=== PATIENT | female | born 1945 | race Caucasian/White ===

== ENCOUNTER → 2017-06-28 | Outpatient (CLI) | payer MEDICARE ==
[2017-06-28 15:39] LABS: Basophils # (A) 0.1 k/uL (0-0.2); Basophils % (A) 1 %; CH 28.6; CHCM 32.4; Eosinophils # (A) 0.5 k/uL (0-0.7); Eosinophils % (A) 8 %; HDW 2.41; HGB 13.8 gm/dL (11.4-16.0); Luc # (Auto) 0.09; Luc % (Auto) 2; Lymphocytes # (A) 2.2 k/uL (1.0-4.8); Lymphocytes % (A) 37 %; MCHC 31.4 g/dL (31.0-37.0); Mean Platelet Volume 7.3; Monocytes # (A) 0.3 k/uL (0-1.0); Monocytes % (A) 5 %; Neutrophils % (A) 49 %; RBC 4.94 m/uL (3.80-5.40); RDW 14.7 % (11.5-15.5); WBC 6.1 k/uL (3.8-10.6); WBC (Perox) 6.09
[2017-06-28 15:43] LABS: Total Bilirubin 0.5 mg/dL (0.2-1.3); Total Protein 6.4 g/dL (6.3-8.2)
[2017-07-01 14:39] LABS: Mis test requested (Blood) CLADOSPORIUM IGG
== END | disposition home or self-care (01) ==
LOC: LABWHC1 14:51
PROVIDERS: ATTEND Allergy & Immunology
DX: J45.901 Unspecified asthma with (acute) exacerbation (principal)
CPT/HCPCS: 36415; 80076; 82785; 85025; 86001

== ENCOUNTER → 2017-09-20 | Outpatient (CLI) | payer MEDICARE, OTHER ==
[2017-09-20 11:20] LABS: Basophils # (A) 0.1 k/uL (0-0.2); Basophils % (A) 1 %; CH 28.1; CHCM 32.2; Eosinophils # (A) 0.4 k/uL (0-0.7); Eosinophils % (A) 4 %; HCT 43.5 % (34.0-46.0); HDW 2.41; Luc # (Auto) 0.18; Luc % (Auto) 2; Lymphocytes # (A) 2.6 k/uL (1.0-4.8); Lymphocytes % (A) 31 %; MCH 28.1 pg (25.0-35.0); MCHC 32.1 g/dL (31.0-37.0); MCV 87.7 fL (80.0-100.0); Mean Platelet Volume 6.6; Monocytes # (A) 0.6 k/uL (0-1.0); Monocytes % (A) 7 %; Neutrophils # (A) 4.8 k/uL (1.3-7.7); Neutrophils % (A) 56 %; RBC 4.97 m/uL (3.80-5.40); RDW 13.8 % (11.5-15.5); WBC 8.6 k/uL (3.8-10.6)
[2017-09-20 18:02] LABS: Clam IgE <0.10 kU/L; Egg White IgE <0.10 kU/L; Peanut IgE <0.10 kU/L; Scallop IgE <0.10 kU/L; Soybean IgE <0.10 kU/L
[2017-09-20 18:14] LABS: Alternaria alternata IgE <0.10 kU/L; Aspergillus fumagatus IgE <0.10 kU/L; Cladosporian herbarum IgE <0.10 kU/L; Maple (Box Elder) IgE <0.10 kU/L; Ragweed,Common IgE <0.10 kU/L
[2017-09-20 18:16] LABS: Cat Epith & Dander IgE <0.10 kU/L; Dermato. farinae IgE <0.10 kU/L; Orchard Grs(Cocksfoot) IgE 2.14 kU/L
== END | disposition home or self-care (01) ==
LOC: LABWHC1 10:46
PROVIDERS: ATTEND Internal Medicine Critical Care Medicine
DX: J45.50 Severe persistent asthma, uncomplicated (principal)
CPT/HCPCS: 36415; 82785; 85008; 85025; 86003

== ENCOUNTER → 2017-09-24 | Outpatient (CLI) | payer MEDICARE, OTHER ==
[2017-09-24 11:31] LABS: Blood Urea Nitrogen 20 mg/dL (7-17); Non-African American GFR(MDRD) 56 (>60 ml/min/1.73 sqM)
--- NOTE | 2017-09-24 12:15 | CT ---
EXAMINATION TYPE: CT sinus w con DATE OF EXAM: 09/24/2017 COMPARISON: NONE HISTORY: Patient complains of persistent asthma. Patient denies sinus/facial complaints at time of s ervice. CT DLP: 635.1 mGycm Automated exposure control for dose reduction was used. CONTRAST: CT scan of the facial bones is performed with IV Contrast, patient injected with 80 mL of Visipaque 3 20. TECHNIQUE: CT scan of the sinuses is performed without contrast, axial images are obtained, coronal r eformatted images are also reviewed. FINDINGS: There is occlusion of the ostiomeatal complexes bilaterally with near circumferential mucos al thickening of the maxillary sinuses and ethmoid sinuses with moderate mucosal thickening in the fr ontal sinuses and mild mucosal thickening within the sphenoid sinuses. There is no evidence of parana shawanda sinus cortical erosion or expansion. High density is seen within the left maxillary sinus which m ay be indicative of hemorrhage or fungal disease. Lamina papyracea appear intact. Visualized portion of mastoid air cells show no abnormal opacification. The globes are intact bilaterally. Right lense s are surgically absent. There is leftward nasal septal deviation with a large middle nasal turbinate camila bullosa on the right. No Drea cells. Chronic mucoperiosteal thickening is also noted in the maxillary sinuses. IMPRESSION: Severe acute on chronic pansinusitis with bilateral ostiomeatal occlusion and a large rig ht middle nasal turbinate camila bullosa. High density seen within the left maxillary sinus which may indicate fungal disease and/or hemorrhage.
== END | disposition home or self-care (01) ==
LOC: RADCTMAIN 10:55
PROVIDERS: ATTEND Internal Medicine Critical Care Medicine
DX: J01.40 Acute pansinusitis, unspecified (principal); J34.89 Other specified disorders of nose and nasal sinuses
CPT/HCPCS: 82565; 84520; 36415; 70487; Q9967

== ENCOUNTER → 2018-06-14 | Outpatient (CLI) | payer MEDICARE, OTHER ==
--- NOTE | 2018-06-21 10:29 | MM ---
Reason for exam: screening (asymptomatic). Last mammogram was performed 1 year and 9 months ago. History: Patient is postmenopausal. Physical Findings: A clinical breast exam by your physician is recommended on an annual basis and results should be correlated with mammographic findings. MG 3D Screening Mammo W/Cad Bilateral CC and MLO view(s) were taken. Prior study comparison: September 02, 2016, mammogram, performed at [place]. July 20, 2006, bilateral screening mammogram w/CAD. The breast tissue is heterogeneously dense. This may lower the sensitivity of mammography. There is benign appearing round calcifications bilaterally. There is no discrete abnormality. ASSESSMENT: Benign, BI-RAD 2 RECOMMENDATION: Routine screening mammogram of both breasts in 1 year.
== END | disposition home or self-care (01) ==
LOC: RADMAMWWP 08:56
PROVIDERS: ATTEND Obstetrics & Gynecology
DX: Z12.31 Encounter for screening mammogram for malignant neoplasm of breast (principal)
CPT/HCPCS: 77063; 77067

== ENCOUNTER → 2018-09-30 | Outpatient (CLI) | payer MEDICARE, OTHER | END | disposition home or self-care (01) | LOC: LABWHC1 12:25 | PROVIDERS: ATTEND Nurse Practitioner Family | DX: R20.2 Paresthesia of skin (principal); M54.2 Cervicalgia; M50.11 Cervical disc disorder with radiculopathy, high cervical region; R26.89 Other abnormalities of gait and mobility | CPT/HCPCS: 36415; 82565; 84520 ==

== ENCOUNTER → 2022-01-01 | Outpatient (CLI) | payer MEDICARE, OTHER ==
[2022-01-01 15:04] LABS: Basophils # (A) 0.06 X 10*3/uL (0.00-0.10); Basophils % (A) 0.9 %; Eosinophils # (A) 0.59 X 10*3/uL (0.04-0.35); Eosinophils % (A) 9.2 %; Immature Grans, Automated 0.2 %; Lymphocytes # (A) 2.04 X 10*3/uL (0.90-5.00); Lymphocytes % (A) 31.8 %; MCV 87.3 fL (80.0-97.0); Mean Platelet Volume 10.3 fL (9.5-12.2); Monocytes # (A) 0.49 X 10*3/uL (0.20-1.00); Monocytes % (A) 7.6 %; NRBC Per 100 WBC 0 /100 WBCS (0.0-0.0); Neutrophils # (A) 3.23 X 10*3/uL (1.80-7.70); Neutrophils % (A) 50.3 %; Platelet Count 222 X 10*3/uL (140-440); RBC 4.81 X 10*6/uL (4.10-5.20); RDW 13.8 % (11.5-14.5); WBC 6.42 X 10*3/uL (4.50-10.00)
[2022-01-01 15:53] LABS: ALT 19 U/L (8-44); AST 17 U/L (13-35); African American GFR (CKD) 77.6 (60.0-200.0); Albumin 4.3 g/dL (3.8-4.9); Albumin/Globulin Ratio 1.91 (1.60-3.17); Alkaline Phosphatase 62 U/L (41-126); Blood Urea Nitrogen 18.7 mg/dL (9.0-27.0); Calcium 9.6 mg/dL (8.7-10.3); Carbon Dioxide 24.4 mmol/L (20.0-27.5); Chloride 104 mmol/L (96-109); Chol/HDL Ratio 2.62 Ratio; Globulin 2.2 g/dL (1.6-3.3); Glucose 98 mg/dL (70-110); LDL Cholesterol,Calculated 117.7 mg/dL (0.0-131.0); Non-African American GFR(CKD) 66.9 (60.0-200.0); Potassium 4.7 mmol/L (3.5-5.5); Sodium 139 mmol/L (135-145); Total Protein 6.5 g/dL (6.2-8.2); VLDL Calculation 13.26 mg/dL (5.00-40.00)
[2022-01-01 16:39] LABS: Appearance,Urine Clear (Clear); Bilirubin,Urine Negative (Negative); Blood,Urine Negative (Negative); Color,Urine Yellow (Yellow); Ketones,Urine Negative (Negative); Leukocyte Esterase,Urine Negative (Negative); Nitrite,Urine Negative (Negative); Protein,Urine Negative (Negative); Specific Gravity,Urine 1.012 (1.001-1.030); Urobilinogen,Urine 0.2 (0.2,1.0)
== END | disposition home or self-care (01) ==
LOC: LABWHC1 08:15
PROVIDERS: ATTEND Internal Medicine
DX: I10 Essential (primary) hypertension (principal); E03.9 Hypothyroidism, unspecified; M81.0 Age-related osteoporosis without current pathological fracture
CPT/HCPCS: 36415; 80053; 80061; 81003; 82306; 83036; 84443; 85025

== ENCOUNTER → 2022-01-05 | Outpatient (CLI) | payer MEDICARE, OTHER ==
--- NOTE | 2022-01-05 15:22 | US ---
EXAMINATION TYPE: US thyroid st tissue head/neck DATE OF EXAM: 01/05/2022 COMPARISON: NONE CLINICAL HISTORY: E04.9 NONTOXIC GOITER. Pt states dr felt thyroid enlarged, pt states difficulty swa llowing GLAND SIZE: Right Lobe: 3.0 x 1.2 x 1.2 cm Overall Parenchyma: heterogenous Left Lobe: 2.8 x 1.2 x 0.9 cm Overall Parenchyma: heterogeneous Isthmus Thickness: 0.2 cm Bilateral neck scanned, no evidence of lymphadenopathy. Bilateral thyroid gland small in size and sl ightly heterogeneous without evidence of nodules. IMPRESSION: Correlate for thyroiditis.
== END | disposition home or self-care (01) ==
LOC: RADUSWWP 12:37
PROVIDERS: ATTEND Internal Medicine
DX: E04.9 Nontoxic goiter, unspecified (principal); R60.0 Localized edema
CPT/HCPCS: 76536

== ENCOUNTER → 2022-04-13 | Outpatient (CLI) | payer MEDICARE, OTHER ==
--- NOTE | 2022-04-15 06:57 | MM ---
Reason for Exam: Screening (asymptomatic). Last mammogram was performed 3 year(s) and 10 month(s) ago. Patient History: Menarche at age 11. First Full-Term at age 21. Postmenopausal. Risk Values: Chary 5 year model risk: 1.7%. NCI Lifetime model risk: 3.5%. Prior Study Comparison: 07/20/2006 Bilateral Screening Mammogram, [facility]. 09/02/2016 Screening Mammogram, [place]. 06/14/2018 Bilateral Screening Mammogram, [facility]. Tissue Density: The breast tissue is heterogeneously dense. This may lower the sensitivity of mammography. Findings: Analyzed By CAD. Occasional scattered benign round calcification redemonstrated. Stable asymmetric prominent tissue anterior left breast. There is no suspicious group of microcalcifications or new suspicious mass in either breast. Overall Assessment: Benign, BI-RAD 2 Management: Screening Mammogram of both breasts in 1 year. Some advise annual bilateral breast ultrasound surveillance in patients with background dense tissue. Electronically signed and approved by: Clint Ruffin M.D.
== END | disposition home or self-care (01) ==
LOC: RADMAMWWP 15:57
PROVIDERS: ATTEND Internal Medicine
DX: Z12.31 Encounter for screening mammogram for malignant neoplasm of breast (principal)
CPT/HCPCS: 77063; 77067

== ENCOUNTER → 2022-04-14 | Outpatient (CLI) | payer MEDICARE, OTHER ==
[2022-04-14 14:43] LABS: Basophils # (A) 0.06 X 10*3/uL (0.00-0.10); Basophils % (A) 1.1 %; Eosinophils # (A) 0.44 X 10*3/uL (0.04-0.35); HCT 43.1 % (37.2-46.3); HGB 13.2 g/dL (12.0-15.0); Immature Grans, Automated 0.2 %; Lymphocytes # (A) 2.24 X 10*3/uL (0.90-5.00); Lymphocytes % (A) 40.5 %; MCH 26.1 pg (27.0-32.0); MCHC 30.6 g/dL (32.0-37.0); MCV 85.3 fL (80.0-97.0); Mean Platelet Volume 10.5 fL (9.5-12.2); Monocytes % (A) 7.2 %; NRBC Per 100 WBC 0 /100 WBCS (0.0-0.0); Neutrophils # (A) 2.38 X 10*3/uL (1.80-7.70); Platelet Count 212 X 10*3/uL (140-440); RBC 5.05 X 10*6/uL (4.10-5.20); RDW 14.6 % (11.5-14.5); WBC 5.53 X 10*3/uL (4.50-10.00)
[2022-04-14 14:54] LABS: Chol/HDL Ratio 2.61 Ratio; LDL Cholesterol,Calculated 109.1 mg/dL (0.0-131.0); VLDL Calculation 12.26 mg/dL (5.00-40.00)
[2022-04-14 15:13] LABS: Appearance,Urine Clear (Clear); Bilirubin,Urine Negative (Negative); Blood,Urine Negative (Negative); Color,Urine Yellow (Yellow); Ketones,Urine Negative (Negative); Nitrite,Urine Negative (Negative); Specific Gravity,Urine 1.013 (1.001-1.030); Urobilinogen,Urine 0.2 (0.2,1.0)
[2022-04-14 15:36] LABS: Bacteria,Urine None Seen /HPF (None Seen)
== END | disposition home or self-care (01) ==
LOC: LABWHC1 09:09
PROVIDERS: ATTEND Internal Medicine
DX: E03.9 Hypothyroidism, unspecified (principal); I10 Essential (primary) hypertension; M81.0 Age-related osteoporosis without current pathological fracture
CPT/HCPCS: 36415; 80061; 81001; 82306; 83036; 84443; 85025

== ENCOUNTER → 2022-08-06 | Outpatient (CLI) | payer MEDICARE, OTHER ==
--- NOTE | 2022-08-06 13:24 | US ---
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 Calf pain. No rednes s or swelling. Hx knee fracture per patient. Not on blood thinners. SIDE PERFORMED: Right TECHNIQUE: The lower extremity deep venous system is examined utilizing real time linear array sonog rain with graded compression, doppler sonography and color-flow sonography. VESSELS IMAGED: Common Femoral Vein Deep Femoral Vein Greater Saphenous Vein * Femoral Vein Popliteal Vein Small Saphenous Vein * Proximal Calf Veins (* superficial vessels) Grayscale, color doppler, spectral doppler imaging performed of the deep veins of the right lower ext remity. There is normal flow, compressibility, vascular waveforms. Right Leg: Negative for DVT IMPRESSION: No ultrasound evidence for deep venous thrombosis of the right lower extremity.
== END | disposition home or self-care (01) ==
LOC: RADUSWWP 11:33
PROVIDERS: ATTEND Orthopaedic Surgery
DX: M17.11 Unilateral primary osteoarthritis, right knee (principal); M11.261 Other chondrocalcinosis, right knee; I80.9 Phlebitis and thrombophlebitis of unspecified site

== ENCOUNTER 2022-08-21 13:59 | Emergency (ER) | payer MEDICARE, OTHER ==
[2022-08-21 14:12] VITALS: TEMP 98.2
--- NOTE | 2022-08-21 14:42 | ED ---
Chest Pain HPI - General Chief Complaint: Chest Pain Stated Complaint: chest pain Time Seen by Provider: 08/21/22 14:15 Source: patient Limitations: no limitations - History of Present Illness Initial Comments: 77-year-old female with past history of asthma, hypertension who presents to the emergency department with chest pain. States that it is described as chest pressure located over the left chest wall without radiation. Denies ripping or tearing back. States the pain is better with activity and is worst at rest. She denies history of cardiac disease. No associated shortness of breath and no diaphoresis. No fevers, chills or cough. No numbness or tingling in her extremities. Does have eye surgery planned on . No other alleviating, precipitating or modifying factors - Related Data Home Medications Medication Instructions Recorded Confirmed Albuterol Sulfate [Ventolin HFA] 2 puff INHALATION RT-Q6H PRN 08/21/22 08/21/22 Budesonide/Formoterol Fumarate 2 puff INHALATION RT-BID 08/21/22 08/21/22 [Symbicort 160-4.5 Mcg Inhaler] Ibandronate Sodium 150 mg PO Q30D 08/21/22 08/21/22 Levothyroxine Sodium 88 mcg PO DAILY 08/21/22 08/21/22 Omeprazole 20 mg PO Q48H 08/21/22 08/21/22 lisinopriL [Zestril] 10 mg PO HS 08/21/22 08/21/22 Allergies Allergy/AdvReac Type Severity Reaction Status Date / Time levofloxacin [From Levaquin] Allergy Rash/Hives Verified 08/21/22 16:07 Review of Systems ROS Statement: Those systems with pertinent positive or pertinent negative responses have been documented in the HPI. ROS Other: All systems not noted in ROS Statement are negative. EKG Findings - EKG Comments: EKG Findings:: EKG demonstrates sinus rhythm with rate of 83. WA interval 165. QRS 90. QTC of 394. No acute ST segment elevations. Deep inverted T-wave in aVR Past Medical History Past Medical History: Asthma, Hypertension, Osteoarthritis (OA), Thyroid Disorder Additional Past Medical History / Comment(s): macular degeneration History of Any Multi-Drug Resistant Organisms: None Reported Additional Past Surgical History / Comment(s): parathyroid Past Psychological History: No Psychological Hx Reported Smoking Status: Never smoker Past Alcohol Use History: None Reported Past Drug Use History: None Reported General Exam Limitations: no limitations General appearance: alert, in no apparent distress Head exam: Present: atraumatic, normocephalic, normal inspection Eye exam: Present: normal appearance, PERRL, EOMI. Absent: scleral icterus, conjunctival injection, periorbital swelling ENT exam: Present: normal exam, mucous membranes moist Neck exam: Present: normal inspection. Absent: tenderness, meningismus, lymphadenopathy Respiratory exam: Present: normal lung sounds bilaterally. Absent: respiratory distress, wheezes, rales, rhonchi, stridor Cardiovascular Exam: Present: regular rate, normal rhythm, normal heart sounds. Absent: systolic murmur, diastolic murmur, rubs, gallop, clicks GI/Abdominal exam: Present: soft, normal bowel sounds. Absent: distended, tenderness, guarding, rebound, rigid Extremities exam: Present: normal inspection, full ROM, normal capillary refill. Absent: tenderness, pedal edema, joint swelling, calf tenderness Back exam: Present: normal inspection Neurological exam: Present: alert, oriented X3, CN II-XII intact Psychiatric exam: Present: normal affect, normal mood Skin exam: Present: warm, dry, intact, normal color. Absent: rash Course Vital Signs 08/21/22 08/21/22 08/21/22 14:08 14:27 17:47 Temperature 98.2 F Pulse Rate 79 84 Pulse Rate [ 82 [employer] ] Respiratory 20 18 Rate Blood Pressure 145/84 123/68 O2 Sat by Pulse 100 98 Oximetry Chest Pain MDM - MDM Upon arrival patient placed into room 18. History and physical exam was performed. 12-lead EKG is obtained. Laboratory studies are conducted. Chest x-rays performed. Laboratory studies are reviewed and troponin is negative. Chest x-ray demonstrates some atypical pleural thickening of the left lung. Results are discussed with the patient. Did recommend admission however patient refused. Patient is aware of the risks of leaving without further evaluation and the limitations of what was provided in the emergency department. Patient will be discharged home and does have a primary care appointment on Wednesday. Instructed that she needs echo and Holter monitoring. Also recommended stress testing. Patient has any new or worsening symptoms or is agreeable to admission she should return to the emergency room. Patient agreeable to this plan and discharged home in stable condition Disposition Clinical Impression: Chest pain Disposition: HOME SELF-CARE Condition: Stable Instructions (If sedation given, give patient instructions): Chest Pain (ED) Additional Instructions: Please follow up with your PCP on Wednesday. I recommend Echo and stress testing. Return to the ED should you have any new or worsening symptoms. Is patient prescribed a controlled substance at d/c from ED?: No Referrals: Duncan Hooker MD [Primary Care Provider] - 1-2 days Time of Disposition: 17:25
--- NOTE | 2022-08-21 15:14 | XR ---
EXAMINATION TYPE: XR chest 2V DATE OF EXAM: 08/21/2022 COMPARISON: None HISTORY: 77-year-old female with chest pain TECHNIQUE: PA and lateral views FINDINGS: Heart normal size. Aorta and pulmonary vasculature within normal limits. Accentuated thoracic kyphosi s. There is some asymmetric density at the left apex likely related to combination of rotation and pr obably some underlying pleural-parenchymal scarring. Otherwise, no consolidation or pleural effusion. Hyperinflation. IMPRESSION: 1. Some asymmetric density at the left apex probably due to a combination of patient rotation and ple ural parenchymal scarring. Recommend follow-up with appropriate centering in 3-4 weeks to reassess. 2. Hyperinflation suggests underlying emphysema. Otherwise, no acute cardiopulmonary process.
[2022-08-21 15:52] LABS: Basophils % (A) 1 %; Eosinophils # (A) 0.2 k/uL (0-0.7); Eosinophils % (A) 3 %; HCT 43.1 % (34.0-46.0); HGB 14.1 gm/dL (11.4-16.0); Lymphocytes # (A) 2.7 k/uL (1.0-4.8); Lymphocytes % (A) 33 %; MCH 28.3 pg (25.0-35.0); MCHC 32.7 g/dL (31.0-37.0); MCV 86.5 fL (80.0-100.0); Mean Platelet Volume 7.4; Monocytes # (A) 0.3 k/uL (0-1.0); Monocytes % (A) 3 %; Neutrophils # (A) 4.8 k/uL (1.3-7.7); Neutrophils % (A) 59 %; Platelet Count 201 k/uL (150-450); RBC 4.98 m/uL (3.80-5.40); RDW 13.6 % (11.5-15.5); WBC 8.2 k/uL (3.8-10.6)
[2022-08-21 16:02] LABS: Albumin 4.2 g/dL (3.5-5.0); Calcium 8.9 mg/dL (8.4-10.2); Magnesium 2.1 mg/dL (1.6-2.3); Potassium 4.6 mmol/L (3.5-5.1); Total Bilirubin 0.4 mg/dL (0.2-1.3); Total Protein 6.5 g/dL (6.3-8.2)
[2022-08-21 16:08] LABS: INR 0.9 (<1.2); Partial Thromboplastin Time 23.6 sec (22.0-30.0); Prothrombin Time 10.1 sec (9.0-12.0)
[2022-08-21 17:48] VITALS: BP 123/68; PULSE 84; RESP 18
== END 2022-08-21 17:48 | disposition home or self-care (01) ==
LOC: SUPCPDRO 13:59 → EC 13:59
DX: R07.9 Chest pain, unspecified (principal); J45.909 Unspecified asthma, uncomplicated; I10 Essential (primary) hypertension; M19.90 Unspecified osteoarthritis, unspecified site; E07.9 Disorder of thyroid, unspecified; Z88.1 Allergy status to other antibiotic agents; Z79.890 Hormone replacement therapy; Z79.51 Long term (current) use of inhaled steroids
CPT/HCPCS: 36415; 71046; 80053; 83690; 83735; 84484; 85025; 85610; 85730; 93005; 99285

== ENCOUNTER → 2022-10-01 | Outpatient (CLI) | payer MEDICARE, OTHER | END | disposition home or self-care (01) | LOC: LABWHC1 13:22 | PROVIDERS: ATTEND Internal Medicine Interventional Cardiology | DX: Z53.9 Procedure and treatment not carried out, unspecified reason (principal) ==

== ENCOUNTER → 2023-02-24 | Outpatient (CLI) | payer MEDICARE, OTHER ==
--- NOTE | 2023-02-24 09:33 | US ---
EXAMINATION TYPE: US abdomen complete DATE OF EXAM: 02/24/2023 COMPARISON: NONE CLINICAL INDICATION: Female, 77 years old with history of R10.11 RUQ PAIN;pain TECHNIQUE: Multiple sonographic images of the abdomen are obtained. FINDINGS: EXAM MEASUREMENTS: Liver Length: 17.7 cm Gallbladder Wall: .2 cm CBD: .7 cm Spleen: 8 cm Right Kidney: 9.0 x 3.7 x 4.0 cm Left Kidney: 9.9 x 4.2 x 3.5 cm Pancreas: Tail obscured by overlying bowel gas Liver: Increased attenuation Gallbladder: Stone visualized. Evidence for sonographic Godinez's sign: no CBD: Upper limits. Spleen: Limited due to bowel gas. Right Kidney: No hydronephrosis or masses seen Left Kidney: No hydronephrosis or masses seen Upper IVC: wnl Abd Aorta: wnl The liver is homogenous. The intrahepatic portion of the IVC and proximal abdominal aorta are within normal limits. Common bile duct is unremarkable. The visualized portions of the pancreas are homog enous. The spleen is unremarkable. Kidneys are symmetric and free of hydronephrosis. No renal lesi ons are seen. IMPRESSION: Cholelithiasis. No evidence for acute process.
== END | disposition home or self-care (01) ==
LOC: RADUSWWP 08:01
PROVIDERS: ATTEND Student in an Organized Health Care Education/Training Program
DX: K80.20 Calculus of gallbladder without cholecystitis without obstruction (principal)
CPT/HCPCS: 76700

== ENCOUNTER 2024-04-24 08:09 | Inpatient (IN) | payer MEDICARE, OTHER ==
[2024-04-24] MEDS: SODIUM CHLORIDE 0.9% 1,000 ML IV STA ×2 (08:30→11:54)
[2024-04-24] MEDS: KETOROLAC 15 MG/ML 1 ML VIAL IVP STA (08:30)
[2024-04-24] MEDS: MORPHINE SULFATE 2 MG/ML SYRINGE IVP STA (08:31)
[2024-04-24] MEDS: ONDANSETRON 4 MG/2 ML VIAL IVP STA (08:37)
[2024-04-24 08:39] LABS: Basophils % (A) 0 %; Eosinophils # (A) 0.1 k/uL (0-0.7); Eosinophils % (A) 1 %; HCT 42.8 % (34.0-46.0); HGB 13.4 gm/dL (11.4-16.0); Lymphocytes # (A) 1.1 k/uL (1.0-4.8); Lymphocytes % (A) 11 %; MCH 27.3 pg (25.0-35.0); MCHC 31.3 g/dL (31.0-37.0); MCV 87.1 fL (80.0-100.0); Mean Platelet Volume 7.3; Monocytes # (A) 0.7 k/uL (0-1.0); Monocytes % (A) 8 %; Neutrophils # (A) 7.7 k/uL (1.3-7.7); Neutrophils % (A) 79 %; Platelet Count 205 k/uL (150-450); RBC 4.91 m/uL (3.80-5.40); RDW 13.8 % (11.5-15.5); WBC 9.8 k/uL (3.8-10.6)
--- NOTE | 2024-04-24 08:41 | ED ---
Abdominal Pain HPI - General Chief Complaint: Abdominal Pain Stated Complaint: abd pain Time Seen by Provider: 04/24/24 08:18 Source: patient, RN notes reviewed Mode of arrival: ambulatory Limitations: no limitations - History of Present Illness Initial Comments: This is a 78-year-old female who presents to the emergency department for abdominal pain. Patient reports right lower quadrant abdominal pain beginning yesterday with intermittent bouts of nausea and vomiting. She feels like she has had fevers, but has not measured her temperature. Denies any radiation of pain or similar pain in the past. She has not had any changes in bowel or bladder habits. MD Complaint: abdominal pain - Related Data Home Medications Medication Instructions Recorded Confirmed Budesonide/Formoterol Fumarate 1 puff INHALATION RT-BID 08/21/22 04/24/24 [Symbicort 160-4.5 Mcg Inhaler] Ibandronate Sodium [Boniva] 150 mg PO Q30D 08/21/22 04/24/24 Levothyroxine Sodium 88 mcg PO AC-BRKFST 08/21/22 04/24/24 Calcium(Unknown Dose) 1 tab PO DAILY 04/24/24 04/24/24 Eye Vitamin(Unknown Dose) 1 tab PO BID 04/24/24 04/24/24 Fish Oil(Unknown Dose) 1 cap PO DAILY 04/24/24 04/24/24 Furosemide [Lasix] 20 mg PO Q2D 04/24/24 04/24/24 Lisinopril-Hctz 20-25 mg 1 tab PO DAILY 04/24/24 04/24/24 [Zestoretic 20-25] Rosuvastatin [Crestor] 10 mg PO HS 04/24/24 04/24/24 Vitamin B Complex 1 cap PO DAILY 04/24/24 04/24/24 Vitamin C(Unknown Dose) 1 tab PO DAILY 04/24/24 04/24/24 Vitamin D3(Unknown Dose) 1 tab PO DAILY 04/24/24 04/24/24 Allergies Allergy/AdvReac Type Severity Reaction Status Date / Time levofloxacin [From Levaquin] Allergy Rash/Hives Verified 04/24/24 10:35 Review of Systems ROS Statement: Those systems with pertinent positive or pertinent negative responses have been documented in the HPI. ROS Other: All systems not noted in ROS Statement are negative. Past Medical History Past Medical History: Asthma, Hypertension, Osteoarthritis (OA), Thyroid Disorder Additional Past Medical History / Comment(s): macular degeneration History of Any Multi-Drug Resistant Organisms: None Reported Additional Past Surgical History / Comment(s): parathyroid Past Psychological History: No Psychological Hx Reported Smoking Status: Never smoker Past Alcohol Use History: None Reported Past Drug Use History: None Reported General Exam Limitations: no limitations General appearance: alert, in no apparent distress Head exam: Present: atraumatic, normocephalic, normal inspection Respiratory exam: Present: normal lung sounds bilaterally. Absent: respiratory distress, wheezes, rales, rhonchi, stridor Cardiovascular Exam: Present: regular rate, normal rhythm, normal heart sounds. Absent: systolic murmur, diastolic murmur, rubs, gallop, clicks GI/Abdominal exam: Present: soft, tenderness (RLQ), normal bowel sounds. Absent: distended Neurological exam: Present: alert, oriented X3, CN II-XII intact Psychiatric exam: Present: normal affect, normal mood Skin exam: Present: warm, dry, intact, normal color. Absent: rash Course Vital Signs 04/24/24 04/24/24 04/24/24 08:10 12:10 12:55 Temperature 98.4 F 98.9 F Pulse Rate 99 97 101 H Respiratory 18 18 20 Rate Blood Pressure 128/77 122/58 139/88 O2 Sat by Pulse 97 96 96 Oximetry Medical Decision Making - Medical Decision Making This is a 78 year old female who presents to the emergency department for abdominal pain. Was pt. sent in by a medical professional or institution? @ -No Did you speak to anyone other than the patient for history? @ -No Did you review nursing and triage notes? @ -Yes, and I agree, it is accurate with regards to the patient's symptoms. Were old charts reviewed? @ -No Differential Diagnosis? @ -Differential Abdominal Pain Women: Appendicitis, Cholecystitis, diverticulosis, ischemic bowel, pancreatitis, hepatitis, UTI, gastroenteritis, AAA, incarcerated hernia, bowel obstruction, constipation, inflammatory bowel, hepatitis, peptic ulcer disease, splenic infarction, perforated viscus, vulvitis, ovarian torsion, PID, kidney stone, placenta abruption, this is not meant to be an all-inclusive list EKG interpreted by me (3pts min.)? @ -EKG interpreted by me demonstrating the following: Sinus rhythm. Ventricular rate 88 bpm, FL interval 196 ms, QRS duration 92 ms, QTc 405 ms. X-rays interpreted by me (1pt min.)? @ -Not obtained CT interpreted by me (1pt min.)? @ -CT scan of the abdomen and pelvis obtained. My interpretation identifies dilation of the appendix. U/S interpreted by me (1pt. min.)? @ -Not obtained What testing was considered but not performed? (CT, X-rays, U/S, labs)? Why? @ -None What meds were considered but not given? Why? @ -None Did you discuss the management of the patient with other professionals? @ -Yes, Dr. Bae, general surgery, who accepts patient for admission. Requests IV antibiotics and keeping the patient n.p.o. Did you reconcile home meds? @ -Yes Was smoking cessation discussed for >3mins.? @ -No Was critical care preformed (if so, how long)? @ -No Were there social determinants of health that impacted care today? How? (Homelessness, low income, unemployed, alcoholism, drug addiction, transportation, low edu. Level, literacy, decrease access to med. care, nursing home, rehab)? @ -No Was there de-escalation of care discussed even if they declined? (Discuss DNR or withdrawal of care, Hospice)? @ -No What co-morbidities impacted this encounter? (DM, HTN, Smoking, COPD, CAD, Cancer, CVA, Hep., AIDS, mental health diagnosis, sleep apnea, morbid obesity)? @ -None Was patient admitted / discharged? @ -Admitted. Lab work unremarkable. CT scan of the abdomen and pelvis obtained demonstrating acute appendicitis. There is no evidence of abscess formation or perforation. Blood cultures were obtained and the patient was started on Zosyn and maintenance IV fluids. Pain was managed in the emergency department. Case discussed with general surgery. Will keep patient n.p.o. with plan for surgical intervention later today. Medicine consulted for medical management. Undiagnosed new problem with uncertain prognosis? @ -None Drug Therapy requiring intensive monitoring for toxicity (Heparin, Nitro, Insulin, Cardizem)? @ -None Were any procedures done? @ -None Diagnosis/symptom? @ -Acute appendicitis Acute, or Chronic, or Acute on Chronic? @ -Acute Uncomplicated (without systemic symptoms) or Complicated (systemic symptoms)? @ -Complicated Side effects of treatment? @ -None Exacerbation, Progression, or Severe Exacerbation] @ -Not applicable Poses a threat to life or bodily function? @ -Yes This case was discussed in detail with the attending ED physician, Dr. Morales. Presentation, findings, and treatment plan discussed in detail as well. - Lab Data Result diagrams: 04/24/24 08:28 04/24/24 08:28 Lab Results 04/24/24 04/24/24 04/24/24 Range/Units 08:28 08:28 08:28 WBC 9.8 (3.8-10.6) k/uL RBC 4.91 (3.80-5.40) m/uL Hgb 13.4 (11.4-16.0) gm/dL Hct 42.8 (34.0-46.0) % MCV 87.1 (80.0-100.0) fL MCH 27.3 (25.0-35.0) pg MCHC 31.3 (31.0-37.0) g/dL RDW 13.8 (11.5-15.5) % Plt Count 205 (150-450) k/uL MPV 7.3 Neutrophils % 79 % Lymphocytes % 11 % Monocytes % 8 % Eosinophils % 1 % Basophils % 0 % Neutrophils # 7.7 (1.3-7.7) k/uL Lymphocytes # 1.1 (1.0-4.8) k/uL Monocytes # 0.7 (0-1.0) k/uL Eosinophils # 0.1 (0-0.7) k/uL Basophils # 0.0 (0-0.2) k/uL Sodium 134 L (137-145) mmol/L Potassium 4.0 (3.5-5.1) mmol/L Chloride 102 (98-107) mmol/L Carbon Dioxide 26 (22-30) mmol/L Anion Gap 6 mmol/L BUN 15 (7-17) mg/dL Creatinine 0.72 (0.52-1.04) mg/dL Est GFR (CKD-EPI)AfAm >90 (>60 ml/min/1.73 sqM) Est GFR (CKD-EPI)NonAf 81 (>60 ml/min/1.73 sqM) Glucose 125 H (74-99) mg/dL Plasma Lactic Acid Toñito 0.9 (0.7-2.0) mmol/L Calcium 9.4 (8.4-10.2) mg/dL Total Bilirubin 1.2 (0.2-1.3) mg/dL AST 25 (14-36) U/L ALT 19 (4-34) U/L Alkaline Phosphatase 60 (38-126) U/L Total Protein 6.7 (6.3-8.2) g/dL Albumin 4.1 (3.5-5.0) g/dL Amylase 57 (30-110) U/L Lipase 76 (23-300) U/L Urine Color Urine Appearance (Clear) Urine pH (5.0-8.0) Ur Specific [place] (1.001-1.035) Urine Protein (Negative) Urine Glucose (UA) (Negative) Urine Ketones (Negative) Urine Blood (Negative) Urine Nitrite (Negative) Urine Bilirubin (Negative) Urine Urobilinogen (<2.0) mg/dL Ur Leukocyte Esterase (Negative) 04/24/24 Range/Units 09:51 WBC (3.8-10.6) k/uL RBC (3.80-5.40) m/uL Hgb (11.4-16.0) gm/dL Hct (34.0-46.0) % MCV (80.0-100.0) fL MCH (25.0-35.0) pg MCHC (31.0-37.0) g/dL RDW (11.5-15.5) % Plt Count (150-450) k/uL MPV Neutrophils % % Lymphocytes % % Monocytes % % Eosinophils % % Basophils % % Neutrophils # (1.3-7.7) k/uL Lymphocytes # (1.0-4.8) k/uL Monocytes # (0-1.0) k/uL Eosinophils # (0-0.7) k/uL Basophils # (0-0.2) k/uL Sodium (137-145) mmol/L Potassium (3.5-5.1) mmol/L Chloride (98-107) mmol/L Carbon Dioxide (22-30) mmol/L Anion Gap mmol/L BUN (7-17) mg/dL Creatinine (0.52-1.04) mg/dL Est GFR (CKD-EPI)AfAm (>60 ml/min/1.73 sqM) Est GFR (CKD-EPI)NonAf (>60 ml/min/1.73 sqM) Glucose (74-99) mg/dL Plasma Lactic Acid [place] (0.7-2.0) mmol/L Calcium (8.4-10.2) mg/dL Total Bilirubin (0.2-1.3) mg/dL AST (14-36) U/L ALT (4-34) U/L Alkaline Phosphatase (38-126) U/L Total Protein (6.3-8.2) g/dL Albumin (3.5-5.0) g/dL Amylase (30-110) U/L Lipase (23-300) U/L Urine Color Colorless Urine Appearance Clear (Clear) Urine pH 7.5 (5.0-8.0) Ur Specific [place] 1.024 (1.001-1.035) Urine Protein Negative (Negative) Urine Glucose (UA) Negative (Negative) Urine Ketones Negative (Negative) Urine Blood Negative (Negative) Urine Nitrite Negative (Negative) Urine Bilirubin Negative (Negative) Urine Urobilinogen <2.0 (<2.0) mg/dL Ur Leukocyte Esterase Negative (Negative) - Radiology Data Radiology results: report reviewed, image reviewed Disposition Clinical Impression: Acute appendicitis Disposition: ADMITTED IP TO THIS HOSP
[2024-04-24 08:53] LABS: ALT 19 U/L (4-34); AST 25 U/L (14-36); African American GFR (CKD) >90 (>60 ml/min/1.73 sqM); Albumin 4.1 g/dL (3.5-5.0); Alkaline Phosphatase 60 U/L (38-126); Amylase 57 U/L (30-110); Anion Gap 6 mmol/L; Blood Urea Nitrogen 15 mg/dL (7-17); Calcium 9.4 mg/dL (8.4-10.2); Carbon Dioxide 26 mmol/L (22-30); Chloride 102 mmol/L (98-107); Glucose 125 mg/dL (74-99); Lipase 76 U/L (23-300); Non-African American GFR(CKD) 81 (>60 ml/min/1.73 sqM); Sodium 134 mmol/L (137-145); Total Bilirubin 1.2 mg/dL (0.2-1.3); Total Protein 6.7 g/dL (6.3-8.2)
--- NOTE | 2024-04-24 09:48 | CT ---
EXAMINATION TYPE: CT abdomen pelvis w con DATE OF EXAM: 04/24/2024 COMPARISON: None HISTORY: RLQ pain CT DLP: 1150.4 mGycm CONTRAST: CT scan of the abdomen and pelvis is performed without Oral Contrast and with IV Contrast, patient in jected with 100ml mL of Isovue 300. FINDINGS: LUNG BASES-: No visible nodule. No infiltrate. LIVER/GB: No calcified gallstones. No space occupying hepatic lesion. Biliary tree is of normal ca liber. PANCREAS: No inflammation. No distinct mass. SPLEEN: No splenic enlargement. No lesion seen. ADRENALS: No nodule. No thickening. KIDNEYS/BLADDER: No hydronephrosis. No nephrolithiasis. No distinct renal mass. Urinary bladder g rossly unremarkable. BOWEL: There is dilated appendix at 1 cm with surrounding periappendiceal inflammatory change and sma ll appendicolith. There is no evidence for abscess at this time or perforation. Small and large bowel are of normal caliber. No evidence for pneumoperitoneum. Small hiatal hernia. GENITAL ORGANS: No gross abnormality. LYMPH NODES: No greater than 1cm abdominal or pelvic lymph nodes are appreciated. AORTA: No significant abnormality. OSSEOUS STRUCTURES: No significant abnormality is seen. OTHER: No significant additional abnormality is seen. IMPRESSION: 1. Acute appendicitis.There is dilated appendix at 1 cm with surrounding periappendiceal inflammatory change and small appendicolith. No evidence for abscess or perforation.
[2024-04-24] MEDS ORDERED: NALOXONE 0.4 MG/ML 1 ML VIAL IV PRN ×2 (10:16→15:41)
[2024-04-24] MEDS ORDERED: ACETAMINOPHEN IV (For NPO) 1,000 MG in EMPTY BAG 1 BAG IVPB PRN (10:17)
[2024-04-24] MEDS ORDERED: MORPHINE SULFATE 2 MG/ML SYRINGE IVP PRN (10:17)
[2024-04-24 10:19] LABS: Appearance,Urine Clear (Clear); Bilirubin,Urine Negative (Negative); Blood,Urine Negative (Negative); Color,Urine Colorless; Glucose,Urine (UA) Negative (Negative); Ketones,Urine Negative (Negative); Leukocyte Esterase,Urine Negative (Negative); Nitrite,Urine Negative (Negative); PH, Urine 7.5 (5.0-8.0); Protein,Urine Negative (Negative); Specific Gravity,Urine 1.024 (1.001-1.035); Urobilinogen,Urine <2.0 mg/dL (<2.0)
[2024-04-24] MEDS: PIPERACILLIN-TAZOBACTAM 3.375 GM in SODIUM CHLORIDE 0.9% 100 ML IVPB STA (11:53)
[2024-04-24] MEDS: MORPHINE SULFATE 4 MG/ML SYRINGE IV PRN (12:03)
[2024-04-24] MEDS: HEPARIN SODIUM,PORCINE 5,000 UNIT/ML 1 ML VIAL SQ SCH (12:34)
[2024-04-24] MEDS: PANTOPRAZOLE 40 MG/10 ML VIAL IVP SCH (12:53)
--- NOTE | 2024-04-24 13:12 | CONS ---
CONSULTATION REASON FOR CONSULTATION: Preop clearance. HISTORY OF PRESENT ILLNESS: This 78-year-old woman with a past medical history of multiple medical problems including asthma, hypertension, was admitted with abdominal pain, appendicitis diagnosed from the CAT scan, some appendiceal information. Surgery is following the patient for possible surgery. There is no history of fever, rigors, or chills. Chest x-ray is pending. EKG shows no acute changes. PAST MEDICAL HISTORY: Reviewed include asthma, hypertension. Rest of the history and chart also reviewed. HOME MEDICATIONS: Reviewed, include lisinopril, dose and rest of medications reviewed. ALLERGIES: Levokin. FAMILY HISTORY: No history of heart disease or strokes in the family. SOCIAL HISTORY: No history of smoking or alcohol intake. REVIEW OF SYSTEMS: Fourteen-point review of systems negative except as mentioned earlier. PHYSICAL EXAMINATION: VITAL SIGNS: Pulse 97, blood pressure 122/58, respirations 18. HEENT: Conjunctivae normal. NECK: No JVD. CARDIOVASCULAR: S1 and S2 muffled. RESPIRATIONS: Breath sounds diminished at the bases. No rhonchi. No crackles. ABDOMEN: Soft, minimal distention. Minimal tenderness in the right lower quadrant. No guarding. No rigidity. Bowel sounds diminished. LEGS: No edema. NERVOUS SYSTEM: Nonfocal. LABORATORY DATA: Sodium 135. Rest of the labs are noted. White count is normal. ASSESSMENT: 1. Acute appendicitis with right lower quadrant abdominal pain. 2. Mild hyponatremia. 3. Hypertension. 4. Asthma. 5. Multiple medical issues. RECOMMENDATIONS AND DISCUSSION: This 78-year-old woman presented with acute appendicitis. At this time, I would recommend to continue the other current medications, antibiotics, DVT prophylaxis. Resume home medications. Monitor blood pressure closely. The patient is cleared for surgery. See orders for further details. Optimize medical treatment. MMODL / IJN: [id number] /
--- NOTE | 2024-04-24 13:26 | XR ---
EXAMINATION TYPE: XR chest 2V DATE OF EXAM: 04/24/2024 1:16 PM CLINICAL INDICATION:Female, 78 years old with history of pre surgery; COMPARISON: Chest radiographs from 04/24/2024 TECHNIQUE: XR chest 2V Frontal and lateral views of the chest. FINDINGS: Lungs/Pleura: There is flattening of the diaphragm with increased lucency of the lungs. No evidence o f pneumothorax, pleural effusion or focal consolidation. Pulmonary vascularity: Unremarkable. Heart/mediastinum: Cardiomediastinal silhouette is unremarkable. Musculoskeletal: No acute osseous pathology. IMPRESSION: 1. No acute cardiopulmonary disease process. 2. COPD changes.
[2024-04-24] MEDS: ONDANSETRON 4 MG/2 ML VIAL IVP PRN (13:46)
--- NOTE | 2024-04-24 13:54 | P.GSHP ---
History of Present Illness H&P Date: 04/24/24 CHIEF COMPLAINT: Abdominal pain HISTORY OF PRESENT ILLNESS: This is a 78-year-old female who presented to the hospital with complaints of right lower quadrant abdominal pain. Patient reports that yesterday around 4 PM her whole abdomen was hurting and then as the evening progressed the pain moves to the right lower quadrant. She has been nauseous and having chills. She has had no prior abdominal surgeries. CT scan abdomen pelvis had reported ported evidence of acute appendicitis. Patient s cheduled for laparoscopic appendectomy today. PAST MEDICAL HISTORY: Asthma, Hypertension, Osteoarthritis (OA), Thyroid Disorder, macular degeneration PAST SURGICAL HISTORY: Parathyroid surgery MEDICATIONS: See below ALLERGIES: See below SOCIAL HISTORY: No illicit drug use. REVIEW OF SYSTEMS: CONSTITUTIONAL: Denies fever or chills. HEENT: Denies blurred vision, vision changes, or eye pain. Denies hemoptysis CARDIOVASCULAR: Denies chest pain or pressure. RESPIRATORY: No shortness of breath. GASTROINTESTINAL: See HPI for pertinent findings HEMATOLOGIC: Denies bleeding disorders. GENITOURINARY: Denies any blood in urine or increased urinary frequency. SKIN: Denies pruitis. Denies rash. PHYSICAL EXAM: VITAL SIGNS: Reviewed GENERAL: Well-developed in no acute distress. ABDOMEN: Soft. Nondistended. Tenderness with palpation to right lower quadrant. NEUROLOGIC: Alert and oriented. Cranial nerves II through XII grossly intact. LABORATORY DATA: WBC 9.8 Hgb 13.4 platelets 205 Sodium is 134 potassium 4.0 creatinine 0.72 IMAGING: CT scan abdomen pelvis acute appendicitis ASSESSMENT: 1. Acute appendicitis PLAN: -Patient scheduled for laparoscopic appendectomy today with Dr. Bae -Keep patient n.p.o. -Continue IV antibiotics -Patient seen by medicine service and cleared for surgery Physician Microfilm Technician note has been reviewed by physician. Signing provider agrees with the documented findings, assessment, and plan of care. Past Medical History Past Medical History: Asthma, Hypertension, Osteoarthritis (OA), Thyroid Disorder Additional Past Medical History / Comment(s): macular degeneration History of Any Multi-Drug Resistant Organisms: None Reported Additional Past Surgical History / Comment(s): parathyroid Past Psychological History: No Psychological Hx Reported Smoking Status: Never smoker Past Alcohol Use History: None Reported Past Drug Use History: None Reported Medications and Allergies Home Medications Medication Instructions Recorded Confirmed Type Budesonide/Formoterol Fumarate 1 puff INHALATION RT-BID 08/21/22 04/24/24 History [Symbicort 160-4.5 Mcg Inhaler] Ibandronate Sodium [Boniva] 150 mg PO Q30D 08/21/22 04/24/24 History Levothyroxine Sodium 88 mcg PO AC-BRKFST 08/21/22 04/24/24 History Calcium(Unknown Dose) 1 tab PO DAILY 04/24/24 04/24/24 History Eye Vitamin(Unknown Dose) 1 tab PO BID 04/24/24 04/24/24 History Fish Oil(Unknown Dose) 1 cap PO DAILY 04/24/24 04/24/24 History Furosemide [Lasix] 20 mg PO Q2D 04/24/24 04/24/24 History Lisinopril-Hctz 20-25 mg 1 tab PO DAILY 04/24/24 04/24/24 History [Zestoretic 20-25] Rosuvastatin [Crestor] 10 mg PO HS 04/24/24 04/24/24 History Vitamin B Complex 1 cap PO DAILY 04/24/24 04/24/24 History Vitamin C(Unknown Dose) 1 tab PO DAILY 04/24/24 04/24/24 History Vitamin D3(Unknown Dose) 1 tab PO DAILY 04/24/24 04/24/24 History Allergies Allergy/AdvReac Type Severity Reaction Status Date / Time levofloxacin [From Levaquin] Allergy Rash/Hives Verified 04/24/24 10:35 Surgical - Exam Vital Signs Temp Pulse Resp BP Pulse Ox 98.4 F 99 18 128/77 97 04/24/24 08:10 04/24/24 08:10 04/24/24 08:10 04/24/24 08:10 04/24/24 08:10 Results - Labs 04/24/24 08:28 04/24/24 08:28 Abnormal Lab Results - Last 24 Hours (Table) 04/24/24 Range/Units 08:28 Sodium 134 L (137-145) mmol/L Glucose 125 H (74-99) mg/dL Diabetes panel 04/24/24 Range/Units 08:28 Sodium 134 L (137-145) mmol/L Potassium 4.0 (3.5-5.1) mmol/L Chloride 102 (98-107) mmol/L Carbon Dioxide 26 (22-30) mmol/L BUN 15 (7-17) mg/dL Creatinine 0.72 (0.52-1.04) mg/dL Glucose 125 H (74-99) mg/dL Calcium 9.4 (8.4-10.2) mg/dL AST 25 (14-36) U/L ALT 19 (4-34) U/L Alkaline Phosphatase 60 (38-126) U/L Total Protein 6.7 (6.3-8.2) g/dL Albumin 4.1 (3.5-5.0) g/dL Calcium panel 04/24/24 Range/Units 08:28 Calcium 9.4 (8.4-10.2) mg/dL Albumin 4.1 (3.5-5.0) g/dL Pituitary panel 04/24/24 Range/Units 08:28 Sodium 134 L (137-145) mmol/L Potassium 4.0 (3.5-5.1) mmol/L Chloride 102 (98-107) mmol/L Carbon Dioxide 26 (22-30) mmol/L BUN 15 (7-17) mg/dL Creatinine 0.72 (0.52-1.04) mg/dL Glucose 125 H (74-99) mg/dL Calcium 9.4 (8.4-10.2) mg/dL Adrenal panel 04/24/24 Range/Units 08:28 Sodium 134 L (137-145) mmol/L Potassium 4.0 (3.5-5.1) mmol/L Chloride 102 (98-107) mmol/L Carbon Dioxide 26 (22-30) mmol/L BUN 15 (7-17) mg/dL Creatinine 0.72 (0.52-1.04) mg/dL Glucose 125 H (74-99) mg/dL Calcium 9.4 (8.4-10.2) mg/dL Total Bilirubin 1.2 (0.2-1.3) mg/dL AST 25 (14-36) U/L ALT 19 (4-34) U/L Alkaline Phosphatase 60 (38-126) U/L Total Protein 6.7 (6.3-8.2) g/dL Albumin 4.1 (3.5-5.0) g/dL
[2024-04-24] MEDS: LACTATED RINGERS 1,000 ML IV ONE (14:10)
[2024-04-24] MEDS ORDERED: LIDOCAINE 4% LTA KIT (4 ML) TOPICAL ONE (14:18)
[2024-04-24] MEDS ORDERED: LIDOCAINE 1% INJ 10MG/ML (20 ML MDV) ONE (14:18)
[2024-04-24] MEDS ORDERED: fentaNYL (PF) 50 MCG/ML 2 ML AMP ONE (14:18)
[2024-04-24] MEDS ORDERED: PROPOFOL 10 MG/ML 20 ML VIAL IV ONE (14:18)
[2024-04-24] MEDS ORDERED: SUCCINYLCHOLINE CHLORIDE 200 MG/10 ML VIAL IV ONE (14:18)
[2024-04-24] MEDS ORDERED: KETOROLAC 15 MG/ML 1 ML VIAL ONE (14:18)
[2024-04-24] MEDS ORDERED: ROCURONIUM 10 MG/ML (5 ML VIAL) IV ONE (14:18)
[2024-04-24] MEDS: LIDOCAINE 1%-EPI 1:100,000 20 ML VIAL SQ ONE ×2 (14:23)
[2024-04-24] MEDS: SODIUM CHLORIDE 0.9% 100 ML with ceFAZolin 2,000 MG IV ONE (14:23)
[2024-04-24] MEDS: PIPERACILLIN-TAZOBACTAM 3.375 GM in SODIUM CHLORIDE 0.9% 100 ML IVPB SCH (15:18)
--- NOTE | 2024-04-24 15:39 | P.OP ---
Date of Procedure: 04/24/24 Preoperative Diagnosis: acute appendicitis Postoperative Diagnosis: perforated appendicitis Procedure(s) Performed: laparoscopic appendectomy Anesthesia: JACK Surgeon: Addison Bae Estimated Blood Loss (ml): 5 Pathology: other (appendix) Condition: stable Disposition: PACU Description of Procedure: The patient's placed on the operating table in the supine position. The patient received general anesthesia. The abdomen was prepped and draped in the usual sterile fashion. The skin was anesthetized 1% local Xylocaine at the trocar sites. Using an 11 blade the skin was incised at the umbilicus. The umbilicus was grasped with a Bam clamp and then a Veress needle was placed into the peritoneal cavity. Position of the Veress needle was confirmed with positive drop test. After adequate insufflation a 5 mm trocar was placed into the peritoneal cavity. The abdomen was further insufflated. And then the laparoscope was placed in the peritoneal cavity. Next a 5 mm trocar was placed in the midline suprapubic position. And then a 10 mm trocar was placed in the midline epigastric position. The patient was rotated with the right side up and in Trendelenburg. The appendix was visualized. The appendix appeared to be inflamed. there appeared to be perforation the appendix. There was a large amount of purulent fluid around the appendix. The appendix was grasped and then using the Harmonic scissors the mesoappendix was divided. A PDS Endoloop was then placed around the base of the appendix. And then the appendix was divided using Harmonic scissors. The appendix was placed into an Endo Catch and brought out through the 10 mm trocar site. The abdomen was irrigated. JAMIE drain is placed in the right paracolic gutter. This was brought out through the inferior 5 mm trocar site.There is no bleeding seen. The trochars withdrawn. The skin was closed interrupted 3-0 Monocryl suture. Dermabond dressing was applied. Patient was sent to recovery room in stable condition.
[2024-04-24] MEDS ORDERED: ONDANSETRON 4 MG/2 ML VIAL IVP PRN (15:47)
[2024-04-24] MEDS ORDERED: HYDROmorphone 0.5 MG/0.5 ML SYRINGE IVP PRN (15:47)
[2024-04-24] MEDS: LACTATED RINGERS 1,000 ML IV SCH (16:55)
[2024-04-24] MEDS: KETOROLAC 15 MG/ML 1 ML VIAL IVP SCH (17:54)
[2024-04-24] MEDS: SYMBICORT 160-4.5 MCG INHALER INHALATION SCH (19:55)
[2024-04-24] MEDS: HYDROmorphone 1 MG/ML 1 ML SYRINGE IVP PRN (21:40)
[2024-04-24] MEDS: ATORVASTATIN 20 MG TAB PO SCH (21:40)
[2024-04-24] MEDS: VIT A,C & E-LUTEIN-MINERALS 1 EACH TAB PO SCH (22:43)
[2024-04-24 23:07] LABS: Appearance,Urine Clear (Clear); Bacteria,Urine Rare /hpf; Bilirubin,Urine Negative (Negative); Blood,Urine Negative (Negative); Color,Urine Yellow; Glucose,Urine (UA) Negative (Negative); Ketones,Urine Negative (Negative); Leukocyte Esterase,Urine Large (Negative); Nitrite,Urine Negative (Negative); Protein,Urine Negative (Negative); Squamous Epithelial Cell,Urine 5 /hpf (0-4); Urobilinogen,Urine <2.0 mg/dL (<2.0); WBC,Urine 14 /hpf (0-5)
[2024-04-24 23:17] LABS: Specific Gravity,Urine >1.050 (1.001-1.035)
[2024-04-25] MEDS: LEVOTHYROXINE 88 MCG TAB PO SCH (06:09)
[2024-04-25] MEDS: ENOXAPARIN 40 MG/0.4 ML SYRINGE SQ SCH (08:14)
[2024-04-25] MEDS: ASCORBIC ACID 500 MG TAB PO SCH (08:14)
[2024-04-25] MEDS: FUROSEMIDE 20 MG TAB PO SCH (08:15)
[2024-04-25] MEDS: LISINOPRIL-HCTZ 20-25 MG 1 EACH TAB PO SCH (08:16)
[2024-04-25] MEDS: CHOLECALCIFEROL 25 MCG (1000 IU) TABLET PO SCH (08:16)
[2024-04-25] MEDS: CALCIUM CARB-VIT D 500 MG-5 MCG TAB PO SCH (08:36)
[2024-04-25] MEDS: HYDROcodone/APAP 5-325MG 1 EACH TAB PO PRN ×2 (09:00→16:17)
[2024-04-25] MEDS ORDERED: FISH OIL PO SCH (09:00)
[2024-04-25] MEDS ORDERED: NON FORMULARY DRUG (Vitamin B Complex [Vitamin B Complex] 1 EACH Capsule) PO SCH (09:00)
[2024-04-25 10:29] LABS: Basophils # (A) 0.03 X 10*3/uL (0.00-0.10); Basophils % (A) 0.4 %; Eosinophils # (A) 0.07 X 10*3/uL (0.04-0.35); Eosinophils % (A) 0.8 %; HCT 34.4 % (37.2-46.3); HGB 10.4 g/dL (12.0-15.0); Lymphocytes # (A) 1.39 X 10*3/uL (0.90-5.00); Lymphocytes % (A) 16.7 %; MCHC 30.2 g/dL (32.0-37.0); MCV 89.4 FL (80.0-97.0); Mean Platelet Volume 9.9 FL (9.5-12.2); Monocytes # (A) 0.47 X 10*3/uL (0.20-1.00); Monocytes % (A) 5.6 %; NRBC Per 100 WBC 0 X 10*3/uL (0.00-0.01); Neutrophils # (A) 6.36 X 10*3/uL (1.80-7.70); Neutrophils % (A) 76.3 %; Platelet Count 160 X 10*3/uL (140-440); RBC 3.85 X 10*6/uL (4.10-5.20); RDW 14.4 % (11.5-14.5); WBC 8.34 X 10*3/uL (4.50-10.00)
[2024-04-25 10:41] LABS: ALT 13 U/L (8-44); AST 13 U/L (13-35); Albumin 3.3 g/dL (3.8-4.9); Albumin/Globulin Ratio 1.83 Ratio (1.60-3.17); Alkaline Phosphatase 45 U/L (41-126); BUN/Creat Ratio 14.09 Ratio (12.00-20.00); Blood Urea Nitrogen 15.5 mg/dL (9.0-27.0); Calcium 8.1 mg/dL (8.7-10.3); Chloride 105 mmol/L (96-109); Globulin 1.8 g/dL (1.6-3.3); Glucose 98 mg/dL (70-110); Potassium 4.2 mmol/L (3.5-5.5); Sodium 138 mmol/L (135-145); Total Bilirubin 0.6 mg/dL (0.3-1.2); Total Protein 5.1 g/dL (6.2-8.2)
[2024-04-25] MEDS: HYDROmorphone 0.5 MG/0.5 ML SYRINGE IVP PRN (12:27)
--- NOTE | 2024-04-25 13:48 | PN ---
PROGRESS NOTE DATE OF SERVICE: 04/25/2024 SUBJECTIVE: This is a 78-year-old woman who was admitted with acute appendicitis, underwent laparoscopic appendectomy. The patient has some abdominal pain. No chest pain, no palpitation. OBJECTIVE: VITAL SIGNS: Pulse is 91, blood pressure ntd, respirations 17. CHEST: Clear to auscultation. CARDIOVASCULAR: S1, S2. ABDOMEN: Soft, minimal tenderness. LABORATORY DATA: WBC 10.4. ASSESSMENT: 1. Mild appendicitis with right lower quadrant abdominal pain. 2. Mild hyponatremia. 3. Hypertension. 4. Rule out UTI. 5. Asthma. 6. Multiple medical issues. RECOMMENDATIONS: Recommended to continue current management, continue symptomatic treatment. Continue the antibiotics. I would also recommend to obtain the urine culture to rule out possibility of UTI. Further recommendations to follow. MMODL / IJN: [id number] / MTDD
--- NOTE | 2024-04-25 14:58 | P.PN ---
Subjective Progress Note Date: 04/25/24 CHIEF COMPLAINT: Perforated appendicitis HISTORY OF PRESENT ILLNESS: Patient is postop day #1 status post laparoscopic appendectomy. Patient reports more pain with movement. She denies any bowel activity. She is urinating without difficulty. JAMIE drain 40 mL serosanguineous output. Afebrile. WBC 8.34 Hgb 10.4 platelets 160 sodium 138 potassium 4.2 creatinine 1.1 PHYSICAL EXAM: VITAL SIGNS: Reviewed. GENERAL: no acute distress. ABDOMEN: Soft. Nondistended. Incision sites clean dry and intact NEUROLOGIC: Alert and oriented. Cranial nerves II through XII grossly intact. ASSESSMENT: 1. Perforated appendicitis status post laparoscopic appendectomy PLAN: -Continue antibiotics -Consults infectious disease for antibiotic management of perforated appendicitis -Continue pain management -Encourage patient to ambulate -Consult physical therapy -Encourage patient to use incentive spirometer -Continue regular diet -DVT prophylaxis Lovenox Physician Wire Dropper note has been reviewed by physician. Signing provider agrees with the documented findings, assessment, and plan of care. Objective - Vital Signs Vital signs: Vital Signs Temp 98.3 F 04/25/24 07:18 Pulse 91 04/25/24 07:18 Resp 17 04/25/24 07:18 BP 102/64 04/25/24 07:18 Pulse Ox 97 04/25/24 08:25 FiO2 Intake & Output 04/24/24 04/25/24 04/25/24 18:59 06:59 18:59 Intake Total 500 180 Output Total 50 30 190 Balance 450 -30 -10 Weight 83.915 kg Intake: IV 500 Oral 180 Output: Drainage 30 Medial Distal Abdomen 30 Urine 190 Estimated Blood Loss 50 Other: Voiding Method Bedside Commode Bedside Commode # Voids 2 - Labs CBC & Chem 7: 04/25/24 07:22 04/25/24 07:22 Labs: Abnormal Lab Results - Last 24 Hours (Table) 04/24/24 04/25/24 04/25/24 Range/Units 22:45 07:22 07:22 RBC 3.85 L (4.10-5.20) X 10*6/uL Hgb 10.4 L (12.0-15.0) g/dL Hct 34.4 L (37.2-46.3) % MCHC 30.2 L (32.0-37.0) g/dL Est GFR (CKD-EPI) 51 L (>=60) Calcium 8.1 L (8.7-10.3) mg/dL Total Protein 5.1 L (6.2-8.2) g/dL Albumin 3.3 L (3.8-4.9) g/dL Ur Specific [place] >1.050 H (1.001-1.035) Ur Leukocyte Esterase Large H (Negative) Urine WBC 14 H (0-5) /hpf Ur Squamous Epith Cells 5 H (0-4) /hpf Urine Bacteria Rare H (None) /hpf
--- NOTE | 2024-04-25 22:52 | P.CONS ---
History of Present Illness - Reason for Consult Consult date: 04/25/24 Ruptured appendicitis Requesting physician: Mayi Navarro - Chief Complaint Abdominal pain x 2 days - History of Present Illness Patient is a 78-year-old female with a past medical history significant for hypertension osteoarthritis hypothyroidism macular degeneration asthma presenting to the hospital yesterday morning for evaluation of abdominal pain apparently started the night before presentation to the hospital patient was describing the pain to be mostly dull aching to sharp moderate to severe intensity and mostly in the right lower quadrant area patient has been nauseated but no vomiting and did have some chills but denies high-grade fever patient on presentation to the hospital had a CT of abdominal pelvis with evidence of acute appendicitis patient was taken to the OR yesterday afternoon he was noticed to have a perforated appendicitis status post laparoscopic appendectomy patient has been started on Zosyn infectious he was consulted for further management of antibiotic repeat patient did have a low-grade fever of 99.9 F yesterday aftern oon and no fever this morning patient was tachycardic on admission to hospital that had resolved patient not hypotensive mildly hypoxic currently on 2 L current oxygen patient did have a normal white count creatinine 0.72 liver enzymes are normal urine is mildly positive blood cultures so far pending Review of Systems Positive point and negatives has been mentioned in the HPI, complete review of systems was performed and all other systems are negative Past Medical History Past Medical History: Asthma, Hypertension, Osteoarthritis (OA), Thyroid Disorder Additional Past Medical History / Comment(s): macular degeneration History of Any Multi-Drug Resistant Organisms: None Reported Additional Past Surgical History / Comment(s): parathyroid Past Psychological History: No Psychological Hx Reported Smoking Status: Never smoker Past Alcohol Use History: None Reported Past Drug Use History: None Reported Medications and Allergies Home Medications Medication Instructions Recorded Confirmed Type Budesonide/Formoterol Fumarate 1 puff INHALATION RT-BID 08/21/22 04/24/24 History [Symbicort 160-4.5 Mcg Inhaler] Ibandronate Sodium [Boniva] 150 mg PO Q30D 08/21/22 04/24/24 History Levothyroxine Sodium 88 mcg PO AC-BRKFST 08/21/22 04/24/24 History Calcium(Unknown Dose) 1 tab PO DAILY 04/24/24 04/24/24 History Eye Vitamin(Unknown Dose) 1 tab PO BID 04/24/24 04/24/24 History Fish Oil(Unknown Dose) 1 cap PO DAILY 04/24/24 04/24/24 History Furosemide [Lasix] 20 mg PO Q2D 04/24/24 04/24/24 History Lisinopril-Hctz 20-25 mg 1 tab PO DAILY 04/24/24 04/24/24 History [Zestoretic 20-25] Rosuvastatin [Crestor] 10 mg PO HS 04/24/24 04/24/24 History Vitamin B Complex 1 cap PO DAILY 04/24/24 04/24/24 History Vitamin C(Unknown Dose) 1 tab PO DAILY 04/24/24 04/24/24 History Vitamin D3(Unknown Dose) 1 tab PO DAILY 04/24/24 04/24/24 History HYDROcodone/APAP 5-325MG [[place] 1 tab PO Q6HR PRN 3 Days #12 tab 05/01/24 Rx 5-325] Simethicone 40 mg/0.6 ml Drops 40 mg PO QID PRN #7 ml 05/01/24 Rx [Mylicon Drops] cefUROXime axetiL [Ceftin] 500 mg PO BID 10 Days #20 tab 05/01/24 Rx metroNIDAZOLE [Flagyl] 500 mg PO TID 10 Days #30 tab 05/01/24 Rx Loperamide [Imodium] 2 mg PO TID PRN #12 capsule 05/03/24 Rx Ondansetron Odt [Zofran Odt] 4 mg PO Q8HR PRN #10 tab 05/03/24 Rx Allergies Allergy/AdvReac Type Severity Reaction Status Date / Time levofloxacin [From Levuin] Allergy Rash/Hives Verified 04/24/24 10:35 Physical Exam Vitals: Vital Signs Temp Pulse Pulse Resp BP BP Pulse Ox 04/25/24 08:25 97 04/25/24 07:18 98.3 F 91 17 102/64 96 04/25/24 01:33 98.6 F 89 16 100/64 97 04/24/24 21:40 87 04/24/24 21:00 82 16 100/64 98 04/24/24 20:00 84 16 105/72 97 04/24/24 19:30 87 16 105/70 98 04/24/24 19:00 90 16 102/61 98 04/24/24 18:00 90 108/66 06/24/24 17:30 96 109/64 04/24/24 17:00 98 105/58 04/24/24 16:45 99.2 F 95 17 121/63 95 04/24/24 16:12 93 16 122/53 96 04/24/24 15:57 94 16 121/59 98 04/24/24 15:42 95 16 133/63 98 04/24/24 15:27 103 H 16 131/63 100 04/24/24 15:12 99 F 108 H 16 132/64 97 04/24/24 14:01 99.9 F H 104 H 16 138/62 97 04/24/24 13:54 99 F Intake and Output 04/24/24 04/25/24 04/25/24 22:59 06:59 14:59 Intake Total 0 180 Output Total 80 190 Balance -80 -10 Intake: IV 0 Oral 180 Output: Drainage 30 Medial Distal Abdomen 30 Urine 190 Estimated Blood Loss 50 Other: Voiding Method Bedside Commode Bedside Commode # Voids 0 2 GENERAL DESCRIPTION: Elderly female lying in bed, no distress. No tachypnea or accessory muscle of respiration use. HEENT: Shows Pallor , no scleral icterus. Oral mucous membrane is dry. No pharyngeal erythema or thrush NECK: Trachea central, no thyromegaly. LUNGS: Unlabored breathing. Clear to auscultation anteriorly. No wheeze or crackle. HEART: S1, S2, regular rate and rhythm. No loud murmur ABDOMEN: Soft, mild distention and tenderness EXTREMITIES: No edema of feet. SKIN: No rash, no masses palpable. NEUROLOGICAL: The patient is awake, alert, oriented x3, mood and affect normal. Results CBC & Chem 7: 05/01/24 03:09 05/01/24 03:09 Labs: Abnormal Lab Results - Last 24 Hours (Table) 04/24/24 04/25/24 04/25/24 Range/Units 22:45 07:22 07:22 RBC 3.85 L (4.10-5.20) X 10*6/uL Hgb 10.4 L (12.0-15.0) g/dL Hct 34.4 L (37.2-46.3) % MCHC 30.2 L (32.0-37.0) g/dL Est GFR (CKD-EPI) 51 L (>=60) Calcium 8.1 L (8.7-10.3) mg/dL Total Protein 5.1 L (6.2-8.2) g/dL Albumin 3.3 L (3.8-4.9) g/dL Ur Specific [place] >1.050 H (1.001-1.035) Ur Leukocyte Esterase Large H (Negative) Urine WBC 14 H (0-5) /hpf Ur Squamous Epith Cells 5 H (0-4) /hpf Urine Bacteria Rare H (None) /hpf Assessment and Plan (1) 4-quinolones allergy Status: Acute Code(s): Z88.1 - ALLERGY STATUS TO OTHER ANTIBIOTIC AGENTS SNOMED Code(s): 601090780 (2) Perforated appendicitis Status: Acute Code(s): K35.32 - AC APPENDICITIS W PERF, LOC PERITONITIS, & GANGR, W/O ABSCS SNOMED Code(s): 17507688 (3) Peritonitis Status: Acute Code(s): K65.9 - PERITONITIS, UNSPECIFIED SNOMED Code(s): 94094265 Plan: 1patient presented hospital with abdominal pain nausea and this patient has been diagnosed with the acute ruptured appendicitis status post laparoscopic appendectomy, will need to cover for the enteric gram-negative both a aerobes and anaerobes to be the likely pathogen 2-patient is appropriate antibiotic therapy in the form of Zosyn 3.37 every 8 hours to continue while waiting for the condition stabilized and culture finalized at the bedside multiple questions answered We will follow on clinical condition and cultures to further adjust medication if needed Thank you for this consultation we will follow the patient along with you Dictation was produced using [employer] dictation software. please excuse any grammatical, word or spelling errors. Time with Patient: Greater than 30
[2024-04-26 08:40] LABS: Basophils # (A) 0.03 X 10*3/uL (0.00-0.10); Basophils % (A) 0.3 %; Eosinophils # (A) 0.29 X 10*3/uL (0.04-0.35); Eosinophils % (A) 3.4 %; HCT 32.4 % (37.2-46.3); HGB 10.5 g/dL (12.0-15.0); Lymphocytes # (A) 1.02 X 10*3/uL (0.90-5.00); Lymphocytes % (A) 11.8 %; MCHC 32.4 g/dL (32.0-37.0); MCV 86.4 FL (80.0-97.0); Mean Platelet Volume 10.1 FL (9.5-12.2); Monocytes # (A) 0.61 X 10*3/uL (0.20-1.00); Monocytes % (A) 7.1 %; NRBC Per 100 WBC 0 X 10*3/uL (0.00-0.01); Neutrophils # (A) 6.64 X 10*3/uL (1.80-7.70); Neutrophils % (A) 77.1 %; Platelet Count 153 X 10*3/uL (140-440); RBC 3.75 X 10*6/uL (4.10-5.20); RDW 13.8 % (11.5-14.5); WBC 8.62 X 10*3/uL (4.50-10.00)
[2024-04-26 08:53] LABS: Blood Urea Nitrogen 14.8 mg/dL (9.0-27.0); Calcium 8.4 mg/dL (8.7-10.3); Carbon Dioxide 25.4 mmol/L (21.6-31.8); Chloride 101 mmol/L (96-109); Glucose 87 mg/dL (70-110); Potassium 3.6 mmol/L (3.5-5.5); Sodium 137 mmol/L (135-145)
[2024-04-26] MEDS: SIMETHICONE 40 MG/0.6 ML DROPS 2,000 MG/30 ML BOTTLE PO SCH (10:15)
--- NOTE | 2024-04-26 10:49 | P.PN ---
Subjective Progress Note Date: 04/26/24 CHIEF COMPLAINT: Perforated appendicitis HISTORY OF PRESENT ILLNESS: Patient is postop day #2 status post laparoscopic appendectomy. Patient complaining of gas pains. She has had no flatus. Denies any nausea or vomiting. Reports decreased appetite. Complains of some abdominal distention. Afebrile. WBC 6.62 Hgb 10.5 platelets 153 PHYSICAL EXAM: VITAL SIGNS: Reviewed. GENERAL: no acute distress. ABDOMEN: Soft. Distended. Diffuse tenderness. Incision sites clean dry and intact NEUROLOGIC: Alert and oriented. Cranial nerves II through XII grossly intact. ASSESSMENT: 1. Perforated appendicitis status post laparoscopic appendectomy PLAN: -Mylicon gas drops ordered for gas pains -Downgrade diet to full liquids -Encourage patient to ambulate. Encourage patient to sit up at bedside chair for all meals -Continue antibiotics per ID service -Continue pain management -Consult physical therapy -Encourage patient to use incentive spirometer -DVT prophylaxis Lovenox and GI prophylaxis Protonix Physician Goodwill Representative note has been reviewed by physician. Signing provider agrees with the documented findings, assessment, and plan of care. Objective - Vital Signs Vital signs: Vital Signs Temp 99.0 F 04/26/24 07:15 Pulse 94 04/26/24 07:15 Resp 17 04/26/24 07:15 BP 121/74 04/26/24 07:15 Pulse Ox 96 04/26/24 07:15 FiO2 Intake & Output 04/25/24 04/26/24 04/26/24 18:59 06:59 18:59 Intake Total 270 240 Output Total 225 40 Balance 45 -40 240 Intake: Oral 270 240 Output: Drainage 35 40 Medial Distal Abdomen 35 40 Urine 190 Other: Voiding Method Bedside Commode Toilet Bedside Commode # Voids 2 4 - Labs CBC & Chem 7: 04/26/24 06:06 04/26/24 06:06 Labs: Abnormal Lab Results - Last 24 Hours (Table) 04/26/24 04/26/24 Range/Units 06:06 06:06 RBC 3.75 L (4.10-5.20) X 10*6/uL Hgb 10.5 L (12.0-15.0) g/dL Hct 32.4 L (37.2-46.3) % Est GFR (CKD-EPI) 58 L (>=60) Calcium 8.4 L (8.7-10.3) mg/dL Microbiology - Last 24 Hours (Table) 04/24/24 11:00 Blood Culture - Preliminary Blood 04/24/24 10:45 Blood Culture - Preliminary Blood
--- NOTE | 2024-04-26 13:13 | PN ---
PROGRESS NOTE DATE OF SERVICE: 04/26/2024 SUBJECTIVE: This is a 78-year-old woman who was admitted with appendicitis, underwent laparoscopic appendectomy. The patient complains of abdominal pain with some distention. No chest pain, no palpitation. OBJECTIVE: VITAL SIGNS: Pulse is 94, blood pressure 120/70, and respirations 17. CHEST: Clear to auscultation. CARDIOVASCULAR: S1, S2. ABDOMEN: Soft, mild distention, mild diffuse tenderness. LABORATORY DATA: WBC is 8.62, rest of the labs are noted. ASSESSMENT: 1. Appendicitis, acute with right lower quadrant abdominal pain, status post laparoscopic appendectomy. 2. Mild hyponatremia. 3. Hypertension, rule out UTI. 4. Asthma. 5. Multiple medical issues. RECOMMENDATIONS: Recommended to continue current medications, continue antibiotics, continue symptomatic treatment. Closely follow with surgery. I would also recommend repeat labs, symptomatic treatment of the pain. DVT prophylaxis. Further recommendations to follow. LYNNETTE / RICHARDSON: [id number] /
--- NOTE | 2024-04-26 22:21 | P.PN ---
Subjective Progress Note Date: 04/26/24 Principal diagnosis: Reason for follow-up is perforated appendicitis and peritonitis Patient is a 78-year female with multiple comorbidities presented to hospital with abdominal pain has been diagnosed with a ruptured appendicitis status post laparoscopic appendectomy. On today's evaluation that is 04/26/2024, Patient is afebrile this morning and denies any chills, patient mention breathing comfortably and is currently on room air, patient denies any chest pain occasional cough patient abdominal pain has decreased in intensity no nausea no vomiting has been complaining a lot of gas but no bowel movement. Patient white count is 8.62 creatinine 1.0 Objective - Vital Signs Vital signs: Vital Signs Temp 99.0 F 04/26/24 07:15 Pulse 94 04/26/24 07:15 Resp 17 04/26/24 07:15 BP 121/74 04/26/24 07:15 Pulse Ox 96 04/26/24 07:15 FiO2 Intake & Output 04/25/24 04/26/24 04/26/24 18:59 06:59 18:59 Intake Total 270 240 Output Total 225 40 Balance 45 -40 240 Intake: Oral 270 240 Output: Drainage 35 40 Medial Distal Abdomen 35 40 Urine 190 Other: Voiding Method Bedside Commode Toilet Toilet Bedside Commode # Voids 2 4 - Exam GENERAL DESCRIPTION: An elderly female up in the chair in no distress RESPIRATORY SYSTEM: Unlabored breathing , decreased breath sounds at bases HEART: S1 S2 regular rate and rhythm , ABDOMEN: Soft , no tenderness EXTREMITIES: No edema feet - Labs CBC & Chem 7: 04/26/24 06:06 04/26/24 06:06 Labs: Abnormal Lab Results - Last 24 Hours (Table) 04/26/24 04/26/24 Range/Units 06:06 06:06 RBC 3.75 L (4.10-5.20) X 10*6/uL Hgb 10.5 L (12.0-15.0) g/dL Hct 32.4 L (37.2-46.3) % Est GFR (CKD-EPI) 58 L (>=60) Calcium 8.4 L (8.7-10.3) mg/dL Microbiology - Last 24 Hours (Table) 04/24/24 11:00 Blood Culture - Preliminary Blood 04/24/24 10:45 Blood Culture - Preliminary Blood Assessment and Plan (1) Perforated appendicitis Current Visit: Yes Status: Acute Code(s): K35.32 - AC APPENDICITIS W PERF, LOC PERITONITIS, & GANGR, W/O ABSCS SNOMED Code(s): 12986724 (2) Peritonitis Current Visit: Yes Status: Acute Code(s): K65.9 - PERITONITIS, UNSPECIFIED SNOMED Code(s): 51136920 (3) 4-quinolones allergy Current Visit: Yes Status: Acute Code(s): Z88.1 - ALLERGY STATUS TO OTHER ANTIBIOTIC AGENTS SNOMED Code(s): 013601121 Plan: 1patient presented hospital with abdominal pain nausea and this patient has been diagnosed with the acute ruptured appendicitis status post laparoscopic a ppendectomy, will need to cover for the enteric gram-negative both aerobes and anaerobes to be the likely pathogen 2-patient continues to be febrile white count normal we will continue patient on Zosyn and monitor clinical course closely Dictation was produced using [employer] dictation software. please excuse any grammatical, word or spelling errors.
[2024-04-26] MEDS: KETOROLAC 15 MG/ML 1 ML VIAL IVP STA (23:02)
[2024-04-27 10:33] LABS: Basophils # (A) 0.02 X 10*3/uL (0.00-0.10); Basophils % (A) 0.3 %; Eosinophils # (A) 0.36 X 10*3/uL (0.04-0.35); Eosinophils % (A) 6.1 %; HCT 31.8 % (37.2-46.3); HGB 9.9 g/dL (12.0-15.0); Lymphocytes % (A) 18.7 %; MCHC 31.1 g/dL (32.0-37.0); MCV 86.6 FL (80.0-97.0); Mean Platelet Volume 10.1 FL (9.5-12.2); Monocytes # (A) 0.46 X 10*3/uL (0.20-1.00); Monocytes % (A) 7.8 %; NRBC Per 100 WBC 0 X 10*3/uL (0.00-0.01); Neutrophils # (A) 3.91 X 10*3/uL (1.80-7.70); Neutrophils % (A) 66.8 %; Platelet Count 154 X 10*3/uL (140-440); RBC 3.67 X 10*6/uL (4.10-5.20); RDW 13.4 % (11.5-14.5); WBC 5.87 X 10*3/uL (4.50-10.00)
[2024-04-27 10:37] LABS: ALT 12 U/L (8-44); AST 17 U/L (13-35); Albumin 3.2 g/dL (3.8-4.9); Albumin/Globulin Ratio 1.68 Ratio (1.60-3.17); Alkaline Phosphatase 54 U/L (41-126); Blood Urea Nitrogen 12.6 mg/dL (9.0-27.0); Calcium 8.6 mg/dL (8.7-10.3); Carbon Dioxide 25.7 mmol/L (21.6-31.8); Chloride 99 mmol/L (96-109); Globulin 1.9 g/dL (1.6-3.3); Glucose 90 mg/dL (70-110); Potassium 3.5 mmol/L (3.5-5.5); Sodium 136 mmol/L (135-145); Total Bilirubin 0.5 mg/dL (0.3-1.2); Total Protein 5.1 g/dL (6.2-8.2)
--- NOTE | 2024-04-27 15:14 | P.PN ---
Subjective Progress Note Date: 04/27/24 Principal diagnosis: Reason for follow-up is perforated appendicitis and peritonitis Patient is a 78-year female with multiple comorbidities presented to hospital with abdominal pain has been diagnosed with a ruptured appendicitis status post laparoscopic appendectomy. On today's evaluation that is 04/27/2024,the patient denies any fever or any chills, patient is breathing comfortably on room air, the patient denies chest pain shortness of breath and no significant cough, patient denies abdominal pain, no nausea vomiting did not have any bowel movement mention feeling slightly better. Patient white count is 5.87, creatinine is 1.0 blood culture negative Objective - Vital Signs Vital signs: Vital Signs Temp 97.8 F 04/27/24 07:00 Pulse 76 04/27/24 07:00 Resp 14 04/27/24 07:00 BP 121/70 04/27/24 07:00 Pulse Ox 96 04/27/24 07:00 FiO2 Intake & Output 04/26/24 04/27/24 04/27/24 18:59 06:59 18:59 Intake Total 240 Output Total 160 Balance 240 -160 Intake: Oral 240 Output: Drainage 160 Medial Distal Abdomen 160 Other: Voiding Method Toilet Toilet # Voids 3 3 2 - Exam GENERAL DESCRIPTION: An elderly female up in the chair in no distress RESPIRATORY SYSTEM: Unlabored breathing , decreased breath sounds at bases HEART: S1 S2 regular rate and rhythm , ABDOMEN: Soft , no tenderness EXTREMITIES: No edema feet - Labs CBC & Chem 7: 04/27/24 07:11 04/27/24 07:11 Labs: Abnormal Lab Results - Last 24 Hours (Table) 04/27/24 04/27/24 Range/Units 07:11 07:11 RBC 3.67 L (4.10-5.20) X 10*6/uL Hgb 9.9 L (12.0-15.0) g/dL Hct 31.8 L (37.2-46.3) % MCHC 31.1 L (32.0-37.0) g/dL Eosinophils # 0.36 H (0.04-0.35) X 10*3/uL Est GFR (CKD-EPI) 58 L (>=60) Calcium 8.6 L (8.7-10.3) mg/dL Total Protein 5.1 L (6.2-8.2) g/dL Albumin 3.2 L (3.8-4.9) g/dL Microbiology - Last 24 Hours (Table) 04/24/24 11:00 Blood Culture - Preliminary Blood 04/24/24 10:45 Blood Culture - Preliminary Blood Assessment and Plan (1) Perforated appendicitis Current Visit: Yes Status: Acute Code(s): K35.32 - AC APPENDICITIS W PERF, LOC PERITONITIS, & GANGR, W/O ABSCS SNOMED Code(s): 34110208 (2) Peritonitis Current Visit: Yes Status: Acute Code(s): K65.9 - PERITONITIS, UNSPECIFIED SNOMED Code(s): 67542264 (3) 4-quinolones allergy Current Visit: Yes Status: Acute Code(s): Z88.1 - ALLERGY STATUS TO OTHER ANTIBIOTIC AGENTS SNOMED Code(s): 899561496 Plan: 1patient presented hospital with abdominal pain nausea and this patient has been diagnosed with the acute ruptured appendicitis status post laparoscopic appendectomy, will need to cover for the enteric gram-negative both aerobes and anaerobes to be the likely pathogen 2-patient continues to be afebrile and the patient white count has been normal continue with the Zosyn while inPatient initial therapy with oral Ceftin and Flagyl x 10 days on discharge at the bedside questions answered Dictation was produced using [employer] dictation software. please excuse any grammatical, word or spelling errors. Time with Patient: Less than 30
--- NOTE | 2024-04-27 23:07 | PN ---
PROGRESS NOTE DATE OF SERVICE: 04/27/2024 SUBJECTIVE: This is a 78-year-old woman who was admitted after appendectomy, is improving significantly. No chest pain, no palpitation. OBJECTIVE: VITAL SIGNS: Pulse 76, blood pressure 110/70, respirations 14. CHEST: Clear to auscultation. CARDIOVASCULAR: S1, S2. ABDOMEN: Soft status post surgery. LABORATORY DATA: Reviewed. ASSESSMENT: 1. Acute appendicitis with right lower quadrant abdominal pain, status post laparoscopic appendectomy. 2. Mild hyponatremia. 3. Hypertension. 4. UTI ruled out. 5. Asthma. 6. Multiple medical issues. RECOMMENDATIONS: Recommended to continue current medications, continue symptomatic treatment. Closely follow with surgery. Cultures are negative so far. Further recommendations to follow. MMODL / IJN: [id number] /
--- NOTE | 2024-04-28 03:28 | PN ---
PROGRESS NOTE DATE OF SERVICE: 04/27/2024 CHIEF COMPLAINT: Perforated appendicitis. HISTORY OF PRESENT ILLNESS: This is a postop day #3 status post laparoscopic appendectomy. The patient reports some improvement in her abdominal pain. She is having flatus. Denies any nausea or vomiting. JAMIE drain with serosanguineous fluid that is more cloudy. She had 80 mL output during the night and 60 mL output this morning. Afebrile. WBC is 5.87, HGB 9.9. PHYSICAL EXAMINATION: ABDOMEN: Soft, mildly distended. Diffuse tenderness. Incision site is clean, dry, and intact. JAMIE drain, serosanguineous cloudy fluid. ASSESSMENT: Perforated appendicitis, status post laparoscopic appendectomy. PLAN: Continue full liquid diet. Continue pain management. Continue antibiotics. Encourage the patient to ambulate. Encourage the patient to use incentive spirometer. MMODL / IJN: [id number] /
[2024-04-28 08:46] LABS: BUN/Creat Ratio 12.91 Ratio (12.00-20.00); Blood Urea Nitrogen 14.2 mg/dL (9.0-27.0); Carbon Dioxide 28.1 mmol/L (21.6-31.8); Chloride 95 mmol/L (96-109); Glucose 110 mg/dL (70-110); Magnesium 1.8 mg/dL (1.5-2.4); Potassium 3.3 mmol/L (3.5-5.5); Sodium 137 mmol/L (135-145)
[2024-04-28 09:20] LABS: Basophils # (A) 0.04 X 10*3/uL (0.00-0.10); Basophils % (A) 0.5 %; Eosinophils # (A) 0.23 X 10*3/uL (0.04-0.35); Eosinophils % (A) 2.7 %; HGB 11.5 g/dL (12.0-15.0); Lymphocytes # (A) 1.59 X 10*3/uL (0.90-5.00); MCH 27.8 pg (27.0-32.0); MCHC 32.9 g/dL (32.0-37.0); MCV 84.7 FL (80.0-97.0); Mean Platelet Volume 10.1 FL (9.5-12.2); Monocytes % (A) 9.6 %; NRBC Per 100 WBC 0 X 10*3/uL (0.00-0.01); Neutrophils # (A) 5.68 X 10*3/uL (1.80-7.70); Neutrophils % (A) 67.8 %; Platelet Count 220 X 10*3/uL (140-440); RBC 4.13 X 10*6/uL (4.10-5.20); RDW 13.2 % (11.5-14.5); WBC 8.37 X 10*3/uL (4.50-10.00)
[2024-04-28] MEDS ORDERED: Potassium Replacement Protocol 1 EACH MISC MISCELLANE PRN (11:46)
[2024-04-28] MEDS ORDERED: Magnesium Replacement Protocol 1 EACH MISC MISCELLANE PRN (11:46)
--- NOTE | 2024-04-28 13:08 | XR ---
EXAMINATION TYPE: XR chest 1V portable DATE OF EXAM: 04/28/2024 12:01 PM CLINICAL INDICATION:Female, 78 years old with history of chf?; COMPARISON: Chest radiographs from 04/24/2024. TECHNIQUE: XR chest 1V portable Frontal view of the chest. FINDINGS: Lungs/Pleura: There is flattening of the diaphragm with increased lucency of the lungs. No evidence o f pneumothorax, pleural effusion or focal consolidation. Pulmonary vascularity: Unremarkable. Heart/mediastinum: Cardiomediastinal silhouette is unremarkable. Musculoskeletal: No acute osseous pathology. Other findings: None IMPRESSION: 1. No acute cardiopulmonary disease process. 2. COPD changes.
--- NOTE | 2024-04-28 13:34 | PN ---
PROGRESS NOTE DATE OF SERVICE: 04/28/2024 SUBJECTIVE: This 78-year-old woman was admitted with acute appendicitis with right lower quadrant abdominal pain, had surgery. The patient is still complaining of some abdominal distention with mild pain. No chest pain, no palpitation. OBJECTIVE: VITAL SIGNS: Pulse 87, blood pressure 125/60, respirations 16. CHEST: Breath sounds diminished at bases. ABDOMEN: Soft, nondistended. NERVOUS SYSTEM: No focal deficits. LABORATORY DATA: Potassium 3.3. ASSESSMENT: 1. Acute appendicitis with right lower quadrant abdominal pain, status post laparoscopic appendectomy. 2. Mild hyponatremia. 3. Hypertension. 4. Asthma. 5. Multiple medical issues. RECOMMENDATIONS: Recommended to continue current management, continue symptomatic treatment. Otherwise continue the antibiotic. I would recommend repeat labs. Potassium supplementation. Further recommendations to follow. MMODL / IJN: [id number] /
[2024-04-28] MEDS: DOCUSATE 100 MG CAP PO PRN (14:22)
[2024-04-28] MEDS: POTASSIUM CHLORIDE ER 20 MEQ TAB.ER PO SCH (15:31)
--- NOTE | 2024-04-28 16:49 | P.PN ---
Subjective Progress Note Date: 04/28/24 Principal diagnosis: Reason for follow-up is perforated appendicitis and peritonitis Patient is a 78-year female with multiple comorbidities presented to hospital with abdominal pain has been diagnosed with a ruptured appendicitis status post laparoscopic appendectomy. On today's evaluation that is 04/28/2024,the patient remains to be afebrile, patient is on room air not requiring supplemental oxygen and denies any shortness of breath no chest pain or cough.Patient denies having any nausea or vomiting, no abdominal pain mention no bowel movement however passing gas. Patient white count is 8.37, creatinine is 1.1 blood culture negative Objective - Vital Signs Vital signs: Vital Signs Temp 98.5 F 04/28/24 07:53 Pulse 87 04/28/24 07:53 Resp 16 04/28/24 07:53 BP 125/68 04/28/24 07:53 Pulse Ox 93 L 04/28/24 08:39 FiO2 Intake & Output 04/27/24 04/28/24 04/28/24 18:59 06:59 18:59 Output Total 85 25 Balance -85 -25 Output: Drainage 85 25 Medial Distal Abdomen 85 25 Other: Voiding Method Toilet Toilet # Voids 2 3 1 - Exam GENERAL DESCRIPTION: An elderly female up in the chair in no distress RESPIRATORY SYSTEM: Unlabored breathing , decreased breath sounds at bases HEART: S1 S2 regular rate and rhythm , ABDOMEN: Soft , no tenderness EXTREMITIES: No edema feet - Labs CBC & Chem 7: 04/28/24 03:36 04/28/24 03:36 Labs: Abnormal Lab Results - Last 24 Hours (Table) 04/28/24 04/28/24 Range/Units 03:36 03:36 Hgb 11.5 L (12.0-15.0) g/dL Hct 35.0 L (37.2-46.3) % Potassium 3.3 L (3.5-5.5) mmol/L Chloride 95 L (96-109) mmol/L Anion Gap 13.90 H (4.00-12.00) mmol/L Est GFR (CKD-EPI) 51 L (>=60) Microbiology - Last 24 Hours (Table) 04/24/24 11:00 Blood Culture - Preliminary Blood 04/24/24 10:45 Blood Culture - Preliminary Blood 04/25/24 18:43 Urine Culture - Final Urine,Clean Catch Assessment and Plan (1) Perforated appendicitis Current Visit: Yes Status: Acute Code(s): K35.32 - AC APPENDICITIS W PERF, LOC PERITONITIS, & GANGR, W/O ABSCS SNOMED Code(s): 19868879 (2) Peritonitis Current Visit: Yes Status: Acute Code(s): K65.9 - PERITONITIS, UNSPECIFIED SNOMED Code(s): 24048623 (3) 4-quinolones allergy Current Visit: Yes Status: Acute Code(s): Z88.1 - ALLERGY STATUS TO OTHER ANTIBIOTIC AGENTS SNOMED Code(s): 185481463 Plan: 1patient presented hospital with abdominal pain nausea and this patient has been diagnosed with the acute ruptured appendicitis status post laparoscopic appendectomy, will need to cover for the enteric gram-negative both aerobes and anaerobes to be the likely pathogen 2-patient continues to be afebrile and the patient white count has been normal 3patient to continue with the Zosyn while inPatient hopefully finishing therapy with oral Ceftin and Flagyl x 10 days on discharge, once the patient is cleared for discharge per surgeon , Dictation was produced using [employer] dictation software. please excuse any grammatical, word or spelling errors. Time with Patient: Less than 30
[2024-04-29 09:19] LABS: Basophils # (A) 0.03 X 10*3/uL (0.00-0.10); Basophils % (A) 0.5 %; Eosinophils # (A) 0.32 X 10*3/uL (0.04-0.35); HCT 32.6 % (37.2-46.3); Lymphocytes # (A) 1.54 X 10*3/uL (0.90-5.00); Lymphocytes % (A) 24.2 %; MCH 26.9 pg (27.0-32.0); MCHC 30.7 g/dL (32.0-37.0); MCV 87.6 FL (80.0-97.0); Mean Platelet Volume 10.1 FL (9.5-12.2); NRBC Per 100 WBC 0 X 10*3/uL (0.00-0.01); Neutrophils # (A) 3.74 X 10*3/uL (1.80-7.70); Neutrophils % (A) 58.8 %; Platelet Count 205 X 10*3/uL (140-440); RBC 3.72 X 10*6/uL (4.10-5.20); RDW 13.3 % (11.5-14.5); WBC 6.36 X 10*3/uL (4.50-10.00)
[2024-04-29] MEDS: ACETAMINOPHEN TAB 325 MG TAB PO PRN (09:23)
[2024-04-29 12:19] LABS: BUN/Creat Ratio 16.89 Ratio (12.00-20.00); Blood Urea Nitrogen 15.2 mg/dL (9.0-27.0); Calcium 9.1 mg/dL (8.7-10.3); Carbon Dioxide 27.7 mmol/L (21.6-31.8); Chloride 99 mmol/L (96-109); Glucose 96 mg/dL (70-110); Magnesium 1.8 mg/dL (1.5-2.4); Potassium 3.9 mmol/L (3.5-5.5); Sodium 138 mmol/L (135-145)
--- NOTE | 2024-04-29 14:40 | P.PN ---
Subjective Progress Note Date: 04/29/24 Principal diagnosis: Reason for follow-up is perforated appendicitis and peritonitis Patient is a 78-year female with multiple comorbidities presented to hospital with abdominal pain has been diagnosed with a ruptured appendicitis status post laparoscopic appendectomy. On today's evaluation that is 04/29/2024, the patient continues to be afebrile, the patient is on room air and breathing comfortably, the Pt denies having any chest pain or cough, the patient denies having any abdominal pain no vomiting did have a bowel movement and feeling better. Patient white count 6.36, creatinine 0.9 Objective - Vital Signs Vital signs: Vital Signs Temp 98.1 F 04/29/24 08:00 Pulse 89 04/29/24 08:00 Resp 16 04/29/24 08:00 BP 119/72 04/29/24 08:00 Pulse Ox 96 04/29/24 08:34 FiO2 Intake & Output 04/28/24 04/29/24 04/29/24 18:59 06:59 18:59 Intake Total 480 Output Total 30 Balance -30 480 Intake: Oral 480 Output: Drainage 30 Medial Distal Abdomen 30 Other: # Voids 1 2 1 - Exam GENERAL DESCRIPTION: An elderly female up in the chair in no distress RESPIRATORY SYSTEM: Unlabored breathing , decreased breath sounds at bases HEART: S1 S2 regular rate and rhythm , ABDOMEN: Soft , no tenderness EXTREMITIES: No edema feet - Labs CBC & Chem 7: 04/29/24 03:48 04/29/24 03:48 Labs: Abnormal Lab Results - Last 24 Hours (Table) 04/29/24 Range/Units 03:48 RBC 3.72 L (4.10-5.20) X 10*6/uL Hgb 10.0 L (12.0-15.0) g/dL Hct 32.6 L (37.2-46.3) % MCH 26.9 L (27.0-32.0) pg MCHC 30.7 L (32.0-37.0) g/dL Assessment and Plan (1) Perforated appendicitis Current Visit: Yes Status: Acute Code(s): K35.32 - AC APPENDICITIS W PERF, LOC PERITONITIS, & GANGR, W/O ABSCS SNOMED Code(s): 38222269 (2) Peritonitis Current Visit: Yes Status: Acute Code(s): K65.9 - PERITONITIS, UNSPECIFIED SNOMED Code(s): 93143117 (3) 4-quinolones allergy Current Visit: Yes Status: Acute Code(s): Z88.1 - ALLERGY STATUS TO OTHER ANTIBIOTIC AGENTS SNOMED Code(s): 471224834 Plan: 1patient presented hospital with abdominal pain nausea and this patient has been diagnosed with the acute ruptured appendicitis status post laparoscopic appendectomy, will need to cover for the enteric gram-negative both aerobes and anaerobes to be the likely pathogen 2-patient continues to be afebrile and the patient white count has been normal 3patient is slowly clinical improving and will continue with the Zosyn while inPatient and monitor clinical course closely at the bedside questions were answered , Dictation was produced using [employer] dictation software. please excuse any grammatical, word or spelling errors. Time with Patient: Less than 30
--- NOTE | 2024-04-29 22:51 | P.PN ---
Subjective Principal diagnosis: Patient seen and evaluated at bedside. Patient doing well, complains of mild right abdominal pain. Objective - Vital Signs Vital signs: Vital Signs Temp 97.8 F 04/29/24 20:00 Pulse 85 04/29/24 20:04 Resp 18 04/29/24 20:00 BP 104/63 04/29/24 20:00 Pulse Ox 94 L 04/29/24 20:00 FiO2 Intake & Output 04/29/24 04/29/24 04/30/24 06:59 18:59 06:59 Intake Total 480 Output Total 30 20 Balance -30 460 Intake: Oral 480 Output: Drainage 30 20 Medial Distal Abdomen 30 20 Other: # Voids 2 3 # Bowel Movements 1 - Exam gen: nad cv: rrr pul: non labored abd:soft, tender to palpation in right upper/lower quadrant, gadiel serous output - Labs CBC & Chem 7: 04/29/24 03:48 04/29/24 03:48 Labs: Abnormal Lab Results - Last 24 Hours (Table) 04/29/24 Range/Units 03:48 RBC 3.72 L (4.10-5.20) X 10*6/uL Hgb 10.0 L (12.0-15.0) g/dL Hct 32.6 L (37.2-46.3) % MCH 26.9 L (27.0-32.0) pg MCHC 30.7 L (32.0-37.0) g/dL Microbiology - Last 24 Hours (Table) 04/24/24 11:00 Blood Culture - Final Blood 04/24/24 10:45 Blood Culture - Final Blood Assessment and Plan Assessment: 78 yo female s/p difficult lap appendectomy gadiel drain serous output patient reassured regarding abdominal pain advance diet as tolerated.
--- NOTE | 2024-04-29 23:51 | PN ---
PROGRESS NOTE DATE OF SERVICE: 04/29/2024 SUBJECTIVE: This is a 78-year-old woman who was admitted with acute appendicitis, is being closely monitored. The patient has less abdominal distention. Chest x-ray showed only COPD changes. PHYSICAL EXAMINATION: VITAL SIGNS: Pulse is 89, blood pressure 190/70, respirations 16. CHEST: Clear to auscultation. CARDIOVASCULAR: S1, S2. ABDOMEN: Soft, mild distention, nontender. LABORATORY DATA: Reviewed, hemoglobin 10. ASSESSMENT: 1. Acute appendicitis with right lower quadrant abdominal pain, status post laparoscopic appendectomy. 2. Mild hyponatremia, improved. 3. Hypertension. 4. Asthma. 5. Multiple medical issues. RECOMMENDATIONS: Recommended to continue current management. Continue with bronchodilators. Continue with empiric antibiotics. Closely follow with surgery. DVT prophylaxis. Further recommendations to follow. MMSOSAL / SINN: [id number] /
--- NOTE | 2024-04-30 09:47 | P.PN ---
Subjective Progress Note Date: 04/30/24 Principal diagnosis: Acute appendicitis 78-year-old female doing fairly well today. Says her pain is improving. Still uncomfortable when she moves about. She had a bowel movement this morning. Appetite is diminished. JAMIE drain is serosanguineous. She is afebrile. Objective - Vital Signs Vital signs: Vital Signs Temp 97.7 F 04/30/24 07:31 Pulse 76 04/30/24 07:31 Resp 19 04/30/24 07:31 BP 128/73 04/30/24 07:31 Pulse Ox 94 L 04/30/24 08:30 FiO2 Intake & Output 04/29/24 04/30/24 04/30/24 18:59 06:59 18:59 Intake Total 480 0 Output Total 20 500 Balance 460 -500 0 Intake: Oral 480 0 Output: Drainage 20 Medial Distal Abdomen 20 Urine 500 Other: # Voids 3 2 # Bowel Movements 1 1 - Exam Abdomen: Soft, nondistended, mild diffuse tenderness, incisions clean and dry, JAMIE in place - Labs CBC & Chem 7: 04/29/24 03:48 04/29/24 03:48 Labs: Microbiology - Last 24 Hours (Table) 04/24/24 11:00 Blood Culture - Final Blood 04/24/24 10:45 Blood Culture - Final Blood Assessment and Plan (1) Acute appendicitis Narrative/Plan: Patient gradually improving. Continue ambulation. Continue diet as tolerated. Continue IV antibiotics. Anticipate discharge tomorrow if pain improved. Current Visit: Yes Status: Acute Code(s): K35.80 - UNSPECIFIED ACUTE APPENDICITIS SNOMED Code(s): 17801047
--- NOTE | 2024-04-30 12:33 | PN ---
PROGRESS NOTE DATE OF SERVICE: 04/30/2024 SUBJECTIVE: This 78-year-old woman was admitted with acute appendicitis and surgery, improving significantly. No chest pain, no palpitation. OBJECTIVE: VITAL SIGNS: Pulse is 76, blood pressure 120/87, respirations 19. CHEST: Clear to auscultation. CARDIOVASCULAR: S1, S2. ABDOMEN: Soft status post surgery. LABORATORY DATA: Reviewed. ASSESSMENT: 1. Acute appendicitis with right lower quadrant abdominal pain, status post laparoscopic appendectomy. 2. Mild hyponatremia, improved. 3. Hypertension. 4. Asthma. 5. Multiple medical issues. RECOMMENDATIONS: Recommended to continue current management, continue symptomatic treatment. Continue with incentive spirometry. Closely follow with surgery. Further recommendations to follow. Antibiotics. MMODL / IJN: [id number] /
--- NOTE | 2024-04-30 15:22 | P.PN ---
Subjective Progress Note Date: 04/30/24 Principal diagnosis: Reason for follow-up is perforated appendicitis and peritonitis Patient is a 78-year female with multiple comorbidities presented to hospital with abdominal pain has been diagnosed with a ruptured appendicitis status post laparoscopic appendectomy. On today's evaluation that is 04/30/2024, Patient is afebrile patient is currently on room air and denies having any shortness of breath, the patient denies any chest pain or cough, the patient denies any nausea vomiting abdominal pain has decreased intensity did have a bowel movement feeling better. No new lab has been obtained today blood pressure has been negative Objective - Vital Signs Vital signs: Vital Signs Temp 97.7 F 04/30/24 07:31 Pulse 76 04/30/24 08:00 Resp 19 04/30/24 07:31 BP 128/73 04/30/24 07:31 Pulse Ox 94 L 04/30/24 08:30 FiO2 Intake & Output 04/29/24 04/30/24 04/30/24 18:59 06:59 18:59 Intake Total 480 0 Output Total 20 500 Balance 460 -500 0 Intake: Oral 480 0 Output: Drainage 20 Medial Distal Abdomen 20 Urine 500 Other: # Voids 3 2 # Bowel Movements 1 1 - Exam GENERAL DESCRIPTION: An elderly female up in the chair in no distress RESPIRATORY SYSTEM: Unlabored breathing , decreased breath sounds at bases HEART: S1 S2 regular rate and rhythm , ABDOMEN: Soft , no tenderness EXTREMITIES: No edema feet - Labs CBC & Chem 7: 04/29/24 03:48 04/29/24 03:48 Labs: Microbiology - Last 24 Hours (Table) 04/24/24 11:00 Blood Culture - Final Blood 04/24/24 10:45 Blood Culture - Final Blood Assessment and Plan (1) Perforated appendicitis Current Visit: Yes Status: Acute Code(s): K35.32 - AC APPENDICITIS W PERF, LOC PERITONITIS, & GANGR, W/O ABSCS SNOMED Code(s): 76674188 (2) Peritonitis Current Visit: Yes Status: Acute Code(s): K65.9 - PERITONITIS, UNSPECIFIED SNOMED Code(s): 54026080 (3) 4-quinolones allergy Current Visit: Yes Status: Acute Code(s): Z88.1 - ALLERGY STATUS TO OTHER ANTIBIOTIC AGENTS SNOMED Code(s): 339936988 Plan: 1patient presented hospital with abdominal pain nausea and this patient has been diagnosed with the acute ruptured appendicitis status post laparoscopic appendectomy, will need to cover for the enteric gram-negative both aerobes and anaerobes to be the likely pathogen 2-patient is slowly clinical improving, remains to be afebrile, white count is normal and will continue with the Zosyn transition to oral antibiotics on discharge , Dictation was produced using [employer] dictation software. please excuse any grammatical, word or spelling errors. Time with Patient: Less than 30
[2024-05-01 07:57] VITALS: RESP 18
[2024-05-01 08:43] LABS: HCT 32.9 % (37.2-46.3); HGB 10.6 g/dL (12.0-15.0); MCH 27.5 pg (27.0-32.0); MCHC 32.2 g/dL (32.0-37.0); MCV 85.2 FL (80.0-97.0); Mean Platelet Volume 9.9 FL (9.5-12.2); NRBC Per 100 WBC 0 X 10*3/uL (0.00-0.01); Platelet Count 252 X 10*3/uL (140-440); RBC 3.86 X 10*6/uL (4.10-5.20); RDW 13.2 % (11.5-14.5); WBC 6.81 X 10*3/uL (4.50-10.00)
[2024-05-01 09:01] LABS: ALT 14 U/L (8-44); AST 17 U/L (13-35); Albumin 3.3 g/dL (3.8-4.9); Albumin/Globulin Ratio 1.57 Ratio (1.60-3.17); Alkaline Phosphatase 48 U/L (41-126); Blood Urea Nitrogen 12.6 mg/dL (9.0-27.0); Calcium 9.1 mg/dL (8.7-10.3); Carbon Dioxide 27.9 mmol/L (21.6-31.8); Chloride 100 mmol/L (96-109); Globulin 2.1 g/dL (1.6-3.3); Glucose 91 mg/dL (70-110); Potassium 3.7 mmol/L (3.5-5.5); Sodium 139 mmol/L (135-145); Total Bilirubin 0.3 mg/dL (0.3-1.2); Total Protein 5.4 g/dL (6.2-8.2)
[2024-05-01 11:41] LABS: Basophils # (A) 0.05 X 10*3/uL (0.00-0.10); Basophils % (A) 0.7 %; Eosinophils # (A) 0.34 X 10*3/uL (0.04-0.35); Lymphocytes # (A) 2.18 X 10*3/uL (0.90-5.00); Monocytes # (A) 0.58 X 10*3/uL (0.20-1.00); Monocytes % (A) 8.5 %; Neutrophils # (A) 3.62 X 10*3/uL (1.80-7.70); Neutrophils % (A) 53.2 %; RBC Morphology Normal (Normal)
[2024-05-01 11:57] VITALS: BMI 33.8
--- NOTE | 2024-05-01 12:56 | P.DS ---
Providers Date of admission: 04/24/24 10:41 Expected date of discharge: 05/01/24 Attending physician: Addison Bae Consults: 04/24/24 10:16 Consult Physician Urgent Consulting Provider: Vidhi Simpson Consult Reason/Comments: Medical management, surgical clearance Do you want consulting provider notified?: Yes 04/25/24 13:09 Consult Physician Routine Consulting Provider: Alan Jain Consult Reason/Comments: Ruptured appendicitis Do you want consulting provider notified?: Yes Primary care physician: Stated None Hospital Course: Discharge diagnosis 1. Perforated appendicitis Hospital course This is a 78-year-old female who presented to the hospital with complaints of right lower quadrant abdominal pain. Patient found to have evidence of acute appendicitis. She was taken to the OR and is status post laparoscopic appendectomy for perforated appendicitis. Patient's pain is controlled. She is tolerating diet. She is afebrile. She is having bowel movements. She has been up and ambulating. She is stable for discharge. She will be discharged with oral antibiotics as per infectious disease recommendations. Please refer to chart for any further details. Physician Stockroom Attendant note has been reviewed by physician. Signing provider agrees with the documented findings, assessment, and plan of care. Patient Condition at Discharge: Stable Plan - Discharge Summary New Discharge Prescriptions: New HYDROcodone/APAP 5-325MG [[place] 5-325] 1 tab PO Q6HR PRN 3 Days #12 tab PRN Reason: Pain cefUROXime axetiL [Ceftin] 500 mg PO BID 10 Days #20 tab metroNIDAZOLE [Flagyl] 500 mg PO TID 10 Days #30 tab No Action Levothyroxine Sodium 88 mcg PO AC-BRKFST Calcium(Unknown Dose) 1 tab PO DAILY Vitamin D3(Unknown Dose) 1 tab PO DAILY Vitamin C(Unknown Dose) 1 tab PO DAILY Fish Oil(Unknown Dose) 1 cap PO DAILY Budesonide/Formoterol Fumarate [Symbicort 160-4.5 Mcg Inhaler] 1 puff INHALATION RT-BID Ibandronate Sodium [Boniva] 150 mg PO Q30D Vitamin B Complex 1 cap PO DAILY Rosuvastatin [Crestor] 10 mg PO HS Lisinopril-Hctz 20-25 mg [Zestoretic 20-25] 1 tab PO DAILY Furosemide [Lasix] 20 mg PO Q2D Eye Vitamin(Unknown Dose) 1 tab PO BID Discharge Medication List Budesonide/Formoterol Fumarate [Symbicort 160-4.5 Mcg Inhaler] 1 puff INHALATION RT-BID 08/21/22 [History] Ibandronate Sodium [Boniva] 150 mg PO Q30D 08/21/22 [History] Levothyroxine Sodium 88 mcg PO AC-BRKFST 08/21/22 [History] Calcium(Unknown Dose) 1 tab PO DAILY 04/24/24 [History] Eye Vitamin(Unknown Dose) 1 tab PO BID 04/24/24 [History] Fish Oil(Unknown Dose) 1 cap PO DAILY 04/24/24 [History] Furosemide [Lasix] 20 mg PO Q2D 04/24/24 [History] Lisinopril-Hctz 20-25 mg [Zestoretic 20-25] 1 tab PO DAILY 04/24/24 [History] Rosuvastatin [Crestor] 10 mg PO HS 04/24/24 [History] Vitamin B Complex 1 cap PO DAILY 04/24/24 [History] Vitamin C(Unknown Dose) 1 tab PO DAILY 04/24/24 [History] Vitamin D3(Unknown Dose) 1 tab PO DAILY 04/24/24 [History] HYDROcodone/APAP 5-325MG [[place] 5-325] 1 tab PO Q6HR PRN 3 Days #12 tab 05/01/24 [Rx] cefUROXime axetiL [Ceftin] 500 mg PO BID 10 Days #20 tab 05/01/24 [Rx] metroNIDAZOLE [Flagyl] 500 mg PO TID 10 Days #30 tab 05/01/24 [Rx] Follow up Appointment(s)/Referral(s): [facility], [NON-STAFF] - 1 Week None,Stated [Primary Care Provider] - 1-2 days Vera Lucero [REFERRING] - 1-2 Days Addison Bae MD [STAFF PHYSICIAN] - 1 Week Activity/Diet/Wound Care/Special Instructions: No driving while taking [place] No lifting over 10 pounds Shower daily. No soaking or tub baths for 2 weeks Very light activity until you are reevaluated at your follow up appointment with your surgeon Discharge/Stand Alone Forms: Area PCPs Discharge Disposition: HOME SELF-CARE
[2024-05-01 14:26] VITALS: BP 110/68; PULSE 85; TEMP 98.2
--- NOTE | 2024-05-01 20:55 | PN ---
PROGRESS NOTE DATE OF SERVICE: 05/01/2024 SUBJECTIVE: This is a 78-year-old woman, who was admitted with acute appendicitis, had surgery. The patient improving significantly. No chest pain. No palpitations. No fever. OBJECTIVE: VITAL SIGNS: Pulse is 74, blood pressure 120/70, respirations 18. CHEST: Clear to auscultation. CARDIOVASCULAR: S1, S2. ABDOMEN: Soft, status post surgery. LABORATORY DATA: Hemoglobin 10.6. ASSESSMENT: 1. Acute appendicitis with right lower quadrant abdominal pain, status post laparoscopic appendectomy. 2. Mild hyponatremia, improved. 3. Hypertension. 4. Asthma history. 5. Multiple medical issues. RECOMMENDATIONS: Recommended to continue current management, continue symptomatic treatment. Resume the home medications. Follow closely with Dr. Plaicdo Stroud, rest of the recommendations per Surgery. Further recommendations to follow. MMODL / IJN: [id number] /
--- NOTE | 2024-05-05 12:05 | P.PN ---
Subjective Progress Note Date: 05/01/24 Principal diagnosis: Reason for follow-up is perforated appendicitis and peritonitis Patient is a 78-year female with multiple comorbidities presented to hospital with abdominal pain has been diagnosed with a ruptured appendicitis status post laparoscopic appendectomy. On today's evaluation that is 05/01/2024, Patient denies having any fever or chills patient is breathing comfortably and is on room air no need for supplemental oxygen no chest pain no cough abdominal pain improved no nausea vomiting did have bowel movement. Patient white count 6.81 creatinine 0.9 blood urine culture has been negative Objective - Vital Signs Vital signs: Vital Signs Temp 97.5 F L 05/01/24 07:56 Pulse 74 05/01/24 07:56 Resp 18 05/01/24 07:56 BP 121/73 05/01/24 07:56 Pulse Ox 97 05/01/24 08:20 FiO2 Intake & Output 04/30/24 05/01/24 05/01/24 18:59 06:59 18:59 Intake Total 0 118 Balance 0 118 Intake: Oral 0 118 Other: Voiding Method Toilet # Voids 3 3 # Bowel Movements 1 - Exam GENERAL DESCRIPTION: An elderly female up in the chair in no distress RESPIRATORY SYSTEM: Unlabored breathing , decreased breath sounds at bases HEART: S1 S2 regular rate and rhythm , ABDOMEN: Soft , no tenderness EXTREMITIES: No edema feet - Labs CBC & Chem 7: 05/01/24 03:09 05/01/24 03:09 Labs: Abnormal Lab Results - Last 24 Hours (Table) 05/01/24 05/01/24 Range/Units 03:09 03:09 RBC 3.86 L (4.10-5.20) X 10*6/uL Hgb 10.6 L (12.0-15.0) g/dL Hct 32.9 L (37.2-46.3) % Total Protein 5.4 L (6.2-8.2) g/dL Albumin 3.3 L (3.8-4.9) g/dL Albumin/Globulin Ratio 1.57 L (1.60-3.17) Ratio Assessment and Plan (1) Perforated appendicitis Status: Acute Code(s): K35.32 - AC APPENDICITIS W PERF, LOC PERITONITIS, & GANGR, W/O ABSCS SNOMED Code(s): 18605511 (2) Peritonitis Status: Acute Code(s): K65.9 - PERITONITIS, UNSPECIFIED SNOMED Code(s): 02126970 (3) 4-quinolones allergy Status: Acute Code(s): Z88.1 - ALLERGY STATUS TO OTHER ANTIBIOTIC AGENTS SNOMED Code(s): 510309622 Plan: 1patient presented hospital with abdominal pain nausea and this patient has been diagnosed with the acute ruptured appendicitis status post laparoscopic appendectomy, will need to cover for the enteric gram-negative both aerobes and anaerobes to be the likely pathogen 2-patient has shown clinical improvement patient remains to be afebrile white count normal patient to finish therapy with oral Ceftin and Flagyl discussed with the admitting team , Dictation was produced using [employer] dictation software. please excuse any grammatical, word or spelling errors. Time with Patient: Less than 30
== END 2024-05-01 14:40 | disposition home health service (06) | DRG 398 ==
LOC: EC 08:09 → 4SSUR 10:41 → 6NMEDSUR 16:13
PROVIDERS: ADMIT Surgery; ATTEND Surgery
PROC: 0DTJ4ZZ Resection of Appendix, Percutaneous Endoscopic Approach (ICD-10-PCS; principal; 2024-04-24 14:45)
DX: K35.32 Acute appendicitis with perforation, localized peritonitis, and gangrene, without abscess (principal); E87.1 Hypo-osmolality and hyponatremia; E03.9 Hypothyroidism, unspecified; I10 Essential (primary) hypertension; J45.909 Unspecified asthma, uncomplicated; H35.30 Unspecified macular degeneration; M19.90 Unspecified osteoarthritis, unspecified site; Z79.51 Long term (current) use of inhaled steroids; Z79.890 Hormone replacement therapy; Z79.83 Long term (current) use of bisphosphonates; Z79.899 Other long term (current) drug therapy; Z88.1 Allergy status to other antibiotic agents
CPT/HCPCS: 36415; 71045; 71046; 74177; 80048; 80053; 81001; 81003; 82150; 83605; 83690; 83735; 85025; 87040; 87086; 88302; 88304; 93005; 94640; 94760; 96361; 96365; 96375; 96376; 99285

== ENCOUNTER 2024-05-03 10:53 | Emergency (ER) | payer MEDICARE, OTHER ==
[2024-05-03 11:00] VITALS: RESP 18; TEMP 97.8
--- NOTE | 2024-05-03 11:03 | ED ---
Nausea/Vomiting/Diarrhea HPI - General Chief complaint: Nausea/Vomiting/Diarrhea Stated complaint: diarrhea Time Seen by Provider: 05/03/24 11:02 Source: patient, family, EMS, RN notes reviewed Mode of arrival: EMS Limitations: no limitations - History of Present Illness Initial comments: This is a 78-year-old female presents the emergency department via EMS for chief complaint of nausea and diarrhea over the past 24 hours. Patient was recently admitted to the emergency department on 04/24/2024 for an emergent appendectomy with Dr. Ashley. Was admitted to the hospital for a week and was discharged on 05/01/2024 in stable condition. Patient was discharged home on oral antibiotics. She states that since yesterday morning she is experiencing pedro sea, no vomiting, and multiple episodes of diarrhea. She denies abdominal pain discharge from the hospital. She denies hematochezia, dark or tarry schools, dysuria, hematuria, dyspnea, chest pain/pressure. States that her stools appear to have mucus in them. Follow up appointment scheduled on 05/09/24. - Related Data Home Medications Medication Instructions Recorded Confirmed Budesonide/Formoterol Fumarate 1 puff INHALATION RT-BID 08/21/22 04/24/24 [Symbicort 160-4.5 Mcg Inhaler] Ibandronate Sodium [Boniva] 150 mg PO Q30D 08/21/22 04/24/24 Levothyroxine Sodium 88 mcg PO AC-BRKFST 08/21/22 04/24/24 Calcium(Unknown Dose) 1 tab PO DAILY 04/24/24 04/24/24 Eye Vitamin(Unknown Dose) 1 tab PO BID 04/24/24 04/24/24 Fish Oil(Unknown Dose) 1 cap PO DAILY 04/24/24 04/24/24 Furosemide [Lasix] 20 mg PO Q2D 04/24/24 04/24/24 Lisinopril-Hctz 20-25 mg 1 tab PO DAILY 04/24/24 04/24/24 [Zestoretic 20-25] Rosuvastatin [Crestor] 10 mg PO HS 04/24/24 04/24/24 Vitamin B Complex 1 cap PO DAILY 04/24/24 04/24/24 Vitamin C(Unknown Dose) 1 tab PO DAILY 04/24/24 04/24/24 Vitamin D3(Unknown Dose) 1 tab PO DAILY 04/24/24 04/24/24 Previous Rx's Medication Instructions Recorded HYDROcodone/APAP 5-325MG [[place] 1 tab PO Q6HR PRN 3 Days #12 tab 05/01/24 5-325] Simethicone 40 mg/0.6 ml Drops 40 mg PO QID PRN #7 ml 05/01/24 [Mylicon Drops] cefUROXime axetiL [Ceftin] 500 mg PO BID 10 Days #20 tab 05/01/24 metroNIDAZOLE [Flagyl] 500 mg PO TID 10 Days #30 tab 05/01/24 Loperamide [Imodium] 2 mg PO TID PRN #12 capsule 05/03/24 Ondansetron Odt [Zofran Odt] 4 mg PO Q8HR PRN #10 tab 05/03/24 Allergies Allergy/AdvReac Type Severity Reaction Status Date / Time levofloxacin [From Levaquin] Allergy Rash/Hives Verified 04/24/24 10:35 Review of Systems ROS Statement: Those systems with pertinent positive or pertinent negative responses have been documented in the HPI. ROS Other: All systems not noted in ROS Statement are negative. Past Medical History Past Medical History: Asthma, Hypertension, Osteoarthritis (OA), Thyroid Disorder Additional Past Medical History / Comment(s): macular degeneration History of Any Multi-Drug Resistant Organisms: None Reported Past Surgical History: Appendectomy Additional Past Surgical History / Comment(s): parathyroid Past Psychological History: No Psychological Hx Reported Smoking Status: Never smoker Past Alcohol Use History: None Reported Past Drug Use History: None Reported General Exam Limitations: no limitations General appearance: alert, in no apparent distress Head exam: Present: atraumatic, normocephalic, normal inspection Eye exam: Present: normal appearance, PERRL, EOMI. Absent: scleral icterus, conjunctival injection, periorbital swelling ENT exam: Present: normal exam, mucous membranes moist Neck exam: Present: normal inspection. Absent: tenderness, meningismus, lymphadenopathy Respiratory exam: Present: normal lung sounds bilaterally. Absent: respiratory distress, wheezes, rales, rhonchi, stridor Cardiovascular Exam: Present: regular rate, normal rhythm, normal heart sounds. Absent: systolic murmur, diastolic murmur, rubs, gallop, clicks GI/Abdominal exam: Present: soft, normal bowel sounds, other (post surgical incision sites (2) of abdomen, and post drainage tube of the umbilicus). Absent: distended, tenderness, guarding Extremities exam: Present: normal inspection, full ROM, normal capillary refill. Absent: tenderness, pedal edema, joint swelling, calf tenderness Back exam: Present: normal inspection Neurological exam: Present: alert, oriented X3, CN II-XII intact Course Vital Signs 05/03/24 05/03/24 10:55 13:31 Temperature 97.8 F Pulse Rate 90 78 Respiratory 18 18 Rate Blood Pressure 149/75 142/70 O2 Sat by Pulse 99 98 Oximetry Medical Decision Making - Medical Decision Making Was pt. sent in by a medical professional or institution (, PA, GEODETIC COMPUTATOR, urgent care, hospital, or senior living...) When possible be specific @ -No Did you speak to anyone other than the patient for history (EMS, parent, family, police, friend...)? What history was obtained from this source @ -No Did you review nursing and triage notes (agree or disagree)? Why? @ -I reviewed and agree with nursing and triage notes Were old charts reviewed (outside hosp., previous admission, EMS record, old EKG, old radiological studies, urgent care reports/EKG's, senior living records)? Report findings @ -The patient's emergency department visit note from 04/20/2024 where she presented with right lower quadrant abdominal pain and nausea. Patient was di agnosed with acute appendicitis and admitted to general surgery on IV antibiotics and pain control. Differential Diagnosis (chest pain, altered mental status, abdominal pain women, abdominal pain men, vaginal bleeding, weakness, fever, dyspnea, syncope, headache, dizziness, GI bleed, back pain, seizure, CVA, palpatations, mental health, musculoskeletal)? @ -Differential Abdominal Pain Women: Appendicitis, Cholecystitis, diverticulosis, ischemic bowel, pancreatitis, hepatitis, UTI, gastroenteritis, AAA, incarcerated hernia, bowel obstruction, constipation, inflammatory bowel, hepatitis, peptic ulcer disease, splenic infarction, perforated viscus, vulvitis, ovarian torsion, PID, kidney stone, placenta abruption, this is not meant to be an all-inclusive list EKG interpreted by me (3pts min.). @ -None X-rays interpreted by me (1pt min.). @ -None done CT interpreted by me (1pt min.). @ -None done U/S interpreted by me (1pt. min.). @ -None done What testing was considered but not performed or refused? (CT, X-rays, U/S, labs)? Why? @ -CT imaging of the abdomen was considered but deferred at this time. Patient was question multiple times if she has been experiencing abdominal pain since discharge from the hospital and she denies. Additionally patient's abdominal examination benign aside from postsurgical laparoscopic incision sites. What meds were considered but not given or refused? Why? @ -none Did you discuss the management of the patient with other professionals (professionals i.e. , PA, GEODETIC COMPUTATOR, lab, RT, psych nurse, marriage and family social worker, toddler caregiver, teacher, aoc plans intelligence officer, manager case management)? Give summary @ -No Was smoking cessation discussed for >3mins.? @ -No Was critical care preformed (if so, how long)? @ -No Were there social determinants of health that impacted care today? How? (Homelessness, low income, unemployed, alcoholism, drug addiction, transportation, low edu. Level, literacy, decrease access to med. care, longterm, rehab)? @ -No Was there de-escalation of care discussed even if they declined (Discuss DNR or withdrawal of care, Hospice)? DNR status @ -No What co-morbidities impacted this encounter? (DM, HTN, Smoking, COPD, CAD, Cancer, CVA, ARF, Chemo, Hep., AIDS, mental health diagnosis, sleep apnea, morbid obesity)? @ -None Was patient admitted / discharged? Hospital course, mention meds given and route, prescriptions, significant lab abnormalities, going to OR and other pertinent info. @ -78-year-old female with nausea and diarrhea. on examination patient denies abdominal pain additionally abdomen is soft and nontender,'s are within normal limits. There are postsurgical incision sites of the abdomen that are well- healing. Will be evaluated via labs in addition to stool sample to rule out potential C. difficile infection. She will be symptomatically treated with IV fluids due to diarrhea and antinausea medication. Patient is in agreement with this plan. CBC unremarkable, CMP hyponatremia 130. Kidney and liver function within normal limits. Patient was provided with an additional liter fluid bolus and is stable for discharge. She will be sent outpatient prescriptions for Zofran and Imodium as needed. Recommend that patient hold use of Imodium over the next 36 hours and if diarrhea continues take medication as prescribed. [place] mmend that patient follows up as scheduled with the general surgeon for further evaluation. All questions answered at bedside and strict return parameters discussed with the patient and she is verbalized understanding. Case discussed with Dr. Butler Undiagnosed new problem with uncertain prognosis? @ -No Drug Therapy requiring intensive monitoring for toxicity (Heparin, Nitro, Insulin, Cardizem)? @ -No Were any procedures done? @ -No Diagnosis/symptom? @ -nausea, Diarrhea Acute, or Chronic, or Acute on Chronic? @ -Acute Uncomplicated (without systemic symptoms) or Complicated (systemic symptoms)? @ -uncomplicated Side effects of treatment? @ -No Exacerbation, Progression, or Severe Exacerbation? @ -No Poses a threat to life or bodily function? How? (Chest pain, [place], [place], pneumonia, PE, COPD, DKA, ARF, appy, cholecystitis, CVA, Diverticulitis, Homicidal, Suicidal, threat to staff... and all critical care pts) @ -No - Lab Data Result diagrams: 05/03/24 11:39 05/03/24 11:39 Lab Results 05/03/24 05/03/24 Range/Units 11:39 11:39 WBC 9.2 (3.8-10.6) k/uL RBC 4.22 (3.80-5.40) m/uL Hgb 11.3 L (11.4-16.0) gm/dL Hct 36.3 (34.0-46.0) % MCV 85.9 (80.0-100.0) fL MCH 26.8 (25.0-35.0) pg MCHC 31.2 (31.0-37.0) g/dL RDW 13.3 (11.5-15.5) % Plt Count 302 (150-450) k/uL MPV 8.0 Neutrophils % 73 % Lymphocytes % 18 % Monocytes % 5 % Eosinophils % 1 % Basophils % 1 % Neutrophils # 6.8 (1.3-7.7) k/uL Lymphocytes # 1.6 (1.0-4.8) k/uL Monocytes # 0.5 (0-1.0) k/uL Eosinophils # 0.1 (0-0.7) k/uL Basophils # 0.1 (0-0.2) k/uL Sodium 130 L (137-145) mmol/L Potassium 3.8 (3.5-5.1) mmol/L Chloride 99 (98-107) mmol/L Carbon Dioxide 25 (22-30) mmol/L Anion Gap 6 mmol/L BUN 21 H (7-17) mg/dL Creatinine 0.75 (0.52-1.04) mg/dL Est GFR (CKD-EPI)AfAm 88 (>60 ml/min/1.73 sqM) Est GFR (CKD-EPI)NonAf 77 (>60 ml/min/1.73 sqM) Glucose 97 (74-99) mg/dL Calcium 9.1 (8.4-10.2) mg/dL Total Bilirubin 0.3 (0.2-1.3) mg/dL AST 47 H (14-36) U/L ALT 37 H (4-34) U/L Alkaline Phosphatase 53 (38-126) U/L Total Protein 5.8 L (6.3-8.2) g/dL Albumin 3.3 L (3.5-5.0) g/dL Lipase 241 (23-300) U/L Disposition Clinical Impression: Diarrhea, Hyponatremia Disposition: HOME SELF-CARE Condition: Good Instructions (If sedation given, give patient instructions): Hyponatremia (ED), Acute Diarrhea (ED) Additional Instructions: Return to the emergency department if your symptoms worsen or not improved. Take prescribed medications as needed for nausea and diarrhea control. Recommend that you follow-up with your general surgeon for further evaluation. Prescriptions: Loperamide [Imodium] 2 mg PO TID PRN #12 capsule PRN Reason: Diarrhea Ondansetron Odt [Zofran Odt] 4 mg PO Q8HR PRN #10 tab PRN Reason: Nausea Is patient prescribed a controlled substance at d/c from ED?: No Referrals: None,Stated [Primary Care Provider] - 1-2 days Time of Disposition: 12:30
[2024-05-03] MEDS: ONDANSETRON 4 MG/2 ML VIAL IVP STA (11:33)
[2024-05-03] MEDS: SODIUM CHLORIDE 0.9% 1,000 ML IV STA ×2 (11:33→12:28)
[2024-05-03 11:50] LABS: HCT 36.3 % (34.0-46.0); HGB 11.3 gm/dL (11.4-16.0); RBC 4.22 m/uL (3.80-5.40); WBC 9.2 k/uL (3.8-10.6)
[2024-05-03 11:51] LABS: Basophils # (A) 0.1 k/uL (0-0.2); Basophils % (A) 1 %; Eosinophils # (A) 0.1 k/uL (0-0.7); Eosinophils % (A) 1 %; Lymphocytes # (A) 1.6 k/uL (1.0-4.8); Lymphocytes % (A) 18 %; MCH 26.8 pg (25.0-35.0); MCHC 31.2 g/dL (31.0-37.0); MCV 85.9 fL (80.0-100.0); Monocytes # (A) 0.5 k/uL (0-1.0); Monocytes % (A) 5 %; Neutrophils # (A) 6.8 k/uL (1.3-7.7); Neutrophils % (A) 73 %; Platelet Count 302 k/uL (150-450); RDW 13.3 % (11.5-15.5)
[2024-05-03 11:55] LABS: ALT 37 U/L (4-34); AST 47 U/L (14-36); African American GFR (CKD) 88 (>60 ml/min/1.73 sqM); Albumin 3.3 g/dL (3.5-5.0); Alkaline Phosphatase 53 U/L (38-126); Anion Gap 6 mmol/L; Blood Urea Nitrogen 21 mg/dL (7-17); Calcium 9.1 mg/dL (8.4-10.2); Carbon Dioxide 25 mmol/L (22-30); Chloride 99 mmol/L (98-107); Glucose 97 mg/dL (74-99); Lipase 241 U/L (23-300); Non-African American GFR(CKD) 77 (>60 ml/min/1.73 sqM); Potassium 3.8 mmol/L (3.5-5.1); Sodium 130 mmol/L (137-145); Total Bilirubin 0.3 mg/dL (0.2-1.3); Total Protein 5.8 g/dL (6.3-8.2)
[2024-05-03 13:32] VITALS: BP 142/70; PULSE 78
== END 2024-05-03 13:32 | disposition home or self-care (01) ==
LOC: EC 10:53
DX: E87.1 Hypo-osmolality and hyponatremia (principal); R19.7 Diarrhea, unspecified; Z88.1 Allergy status to other antibiotic agents
CPT/HCPCS: 36415; 80053; 83690; 85025; 99284; 96374; 96361; J2405

== ENCOUNTER → 2024-06-14 | Outpatient (CLI) | payer MEDICARE, OTHER ==
--- NOTE | 2024-07-05 22:14 | MM ---
Reason for Exam: Screening (asymptomatic). Last mammogram was performed 2 year(s) and 2 month(s) ago. Patient History: Menarche at age 11. First Full-Term at age 21. Postmenopausal. Risk Values: Chary 5 year model risk: 1.7%. NCI Lifetime model risk: 2.8%. Prior Study Comparison: 09/02/2016 Screening Mammogram, [place]. 06/14/2018 Bilateral Screening Mammogram, [facility]. 04/13/2022 Bilateral MG 3D screening mammo w/cad, [facility]. Tissue Density: The breasts are heterogeneously dense, which may obscure small masses. Findings: Analyzed By CAD. There is no suspicious group of microcalcifications or new suspicious mass in either breast. Overall Assessment: Negative, BI-RAD 1 Management: Screening Mammogram of both breasts in 1 year. . Patient should continue monthly self-breast exams. A clinical breast exam by your physician is recommended on an annual basis. This exam should not preclude additional follow-up of suspicious palpable abnormalities. Note on Chary scores and lifetime risk: 1. A Chary score greater than 3% is considered moderate risk. If this is the case, consider specialist referral to assess eligibility for a risk reducing agent. 2. If overall lifetime risk for the development of breast cancer is 20% or higher, the patient may qualify for future screening with alternating mammogram and breast MRI. Electronically signed and approved by: Sary Rangel M.D. Radiologist
== END | disposition home or self-care (01) ==
LOC: RADBDWWP 12:00
PROVIDERS: ATTEND Family Medicine
DX: Z12.31 Encounter for screening mammogram for malignant neoplasm of breast (principal); R92.333 Mammographic heterogeneous density, bilateral breasts; Z78.0 Asymptomatic menopausal state
CPT/HCPCS: 77063; 77067